=== PATIENT | male | born 1995 | race African-American/Black ===

== ENCOUNTER 2020-02-12 08:15 | Outpatient (RCR) | payer OTHER, SELFPAY ==
--- NOTE | 2020-01-09 17:30 | PT.OIE ---
Current Diagnoses Low back pain (01/09/20) Pain in leg, unspecified (01/09/20) Abnormal posture (01/09/20) Visit Care Team Role Provider Type Kadeemilynamrata Donovan Family Provider Non-Staff Specialty: Family Practice Address: [address] [place], [address] Fax: Email: Liliya Angel MD Attending Provider Non-Staff Referring Provider Specialty: Neurology Address: [address] [place] [address], [id number] Email: Physical Therapy Initial Evaluation PT-OP-A Visit Information Start: 01/09/20 12:45 Freq: Status: Active Protocol: Document 01/09/20 14:23 LRN (Rec: 01/09/20 15:13 LRN [id number]) Out-Patient Physical Therapy Visit Information Visit Information Visit Type Initial Evaluation Visit Start Time 14:24 Visit Stop Time 15:13 Total Visit Minutes 39 Visit Number 1 Evaluation Information Evaluation Date 01/09/20 Precautions Precautions Depression Prior Hx of Testicular torsion surgery in 2016. Bruises easily PT-OP-B Current Condition Start: 01/09/20 12:45 Freq: Status: Active Protocol: Document 01/09/20 14:23 LRN (Rec: 01/09/20 15:13 LRN [id number]) Current Condition History of Current Condition Onset Date 2015 Current Complaints LBP, intermittent LE pain and constant tingling/burning in entire foot. History of Current Condition LBP after surgery for testicular torsion in 2016. Pain started in both feet and radiates in spots up the legs (front of the knees) into the entire lower back. PT referral to see if the problem is in the lower back. Recently went to ER, last week , for back spasms. Was given medication (anti-inflammatory & Naproxin) that didn't help a lot. He reports sometimes burning pain along the medial inginual ligament bilaterally. Prior Treatments and Tests See above for medications taking. Future Testing and Treatments Planned None planned. Treatment Goals Patient/Caregiver Goals Pt goal is to relieve pain in low back and lower 1/2 of the body, 2) be able to lift weights 3) run for long distance (>1/4 mile), 4) tolerate standing still (>3') 5) Sit w/o having to shift around or lean, 6) Walk >30', 7) Bend with less pain. Prior Functional Status Baseline Function- ADL's Independent Baseline Function- Mobility Independent Current Functional Impairments (Reported) Functional Limitations- ADL's Limited in Lifting, bending, standing & sitting tolerance. Functional Limitations- Mobility/Gait Not able to walking > 30' or run > 1/4 mile Personal Factors Other Personal Factors That May Effect Depression that pt is seeking Therapy/Recovery medical help for. Pt demonstrates high sympathetic nervous system and protective posturing. 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 Patient Questionnaires Oswestry Low Back Index Oswestry Score 42 Oswestry Impairment 40 to 59% Impaired (Score 40- 59) OP-PT Pain Assessment Location Low back Pain Location Details Low back Intensity 8 Scale Used Numeric (0 - 10) Description Aching,Burning Comments Pain Comments Pt reported pain in the lower legs and burning/tingling in the feet bilaterally, but did not note these areas in the pain grid. PT-OP-H Neuro Start: 01/09/20 12:45 Freq: Status: Active Protocol: Document 01/09/20 14:23 LRN (Rec: 01/09/20 19:41 LRN [id number]) Sensation Evaluation Gross Sensation Sensation Description Hyperesthesia,Pins & [place] Dermatome Impairments L5,S1 Deep Tendon Reflex & Clonus Assessment Deep Tendon Reflex Bilateral Achilles Deep Tendon Reflex 3+ Normal But Brisk Left Patellar Deep Tendon Reflex 3+ Normal But Brisk PT-OP-J Posture/Palpation/Skin Start: 01/09/20 12:45 Freq: Status: Active Protocol: Document 01/09/20 14:23 LRN (Rec: 01/09/20 19:41 LRN [id number]) Posture Evaluation Position Standing Head/C-Spine Posture Neutral Position T-Spine Posture Neutral L-Spine Posture Rotation Right,Increased Lordosis Shoulder Posture Neutral Pelvis Posture Anteriorly Tilted Weight Distribution Balanced Comments Posture Comments Patient demonstrated protective posturing of the UE 's in standing, supine and prone with Palpation Assessment Location Lumbar region Palpation Location Posterior lumbar region Palpation Findings Soft Tissue Tightness,Muscle Guarding,Tenderness Palpation Details Spinous process of L1-L3, L5. Tranverse processes of L1 through L5 Lumbar paraspinals as indicated above PT-OP-K Range of Motion Start: 01/09/20 12:45 Freq: Status: Active Protocol: Document 01/09/20 14:23 LRN (Rec: 01/09/20 19:41 LRN [id number]) Lumbar Spine Range of Motion Lumbar Spine Active Degrees Testing Position Standing Flexion 65 Extension 12 Rotation Left 30 Rotation Right 25 Lateral Flexion Left 18 Lateral Flexion Right 13 ROM Limitations Pain Hip Goniometric Range of Motion Hip Right Active Hip ROM WFL No Testing Position Supine Flexion w/Knee Flexed 95 Straight Leg Raise 50 Left Active Hip ROM WFL No Testing Position Supine Flexion w/Knee Flexed 90 Straight Leg Raise 55 Hip ROM Limitations Hip ROM Limitations Pain Comments Pain is located in L low back bilaterally. Ankle and Foot Goniometric Range of Motion Ankle and Foot Right Active Ankle/Foot ROM WFL No Testing Position Supine Plantarflexion 37 Left Active Ankle/Foot ROM WFL No Testing Position Supine Plantarflexion 25 Ankle and Foot ROM Limitations ROM Limitations Soft Tissue Tightness Comments Active ankle DF is lacking 11 degs left, lacking 5 degs right (normal is 20 deg's). Active ankle PF normal is 45- 50 deg's PT-OP-L Special Tests Start: 01/09/20 12:45 Freq: Status: Active Protocol: Document 01/09/20 14:23 LRN (Rec: 01/09/20 19:41 LRN [id number]) Special Tests Lumbar Spine Special Tests Vertical Spine Loading Test Results + Comments Pain reproduced in L low back Manual Traction Test Results - Comments No change with pain Kenan Test Results + bilaterally Comments Indicates very tight hip flexors Straight Leg Raise Test Results + bilaterally Comments L LBP with testing bilaterally indicating possible large disc involvement Slump Test Results + Comments Increased back pain PT-OP-M Strength Start: 01/09/20 12:45 Freq: Status: Active Protocol: Document 01/09/20 14:23 LRN (Rec: 01/09/20 19:41 LRN [id number]) Hip Strength Hip Manual Muscle Testing Right Flexion (L2) 5 Normal Left Flexion (L2) 5 Normal Knee Strength Knee Manual Muscle Testing Right Flexion (S2) 5 Normal Extension (L3) 5 Normal Left Flexion (S2) 5 Normal Extension (L3) 5 Normal Ankle/Foot Strength Ankle and Foot Manual Muscle Testing Right Reason Not Measured WFL Left Reason Not Measured WFL PT-OP-Q Treatments Start: 01/09/20 12:45 Freq: Status: Active Protocol: Document 01/09/20 14:23 LRN (Rec: 01/09/20 19:41 LRN [id number]) Therapeutic Exercises Supine Exercises SKTC Supine Exercise Name SKTC painfree stretch Side bilateral Reps/Minutes Hold 10 secs x 2 Comments Pt trained in appropriate stretch to not exceed pain. Therapeutic Activity Therapeutic Activity Supine <-> Sit Name Log roll transfer Supine <-> Sit training Reps/Minutes 1x Comments Pt showed good understanding. Self-Care/Home Management Treatment Education Patient Education Home Exercise Program Other Education Discussed use of Ice or Heat for pain management, but pt noted when using Ice of Heat he feels an unwinding type of sensation that he does not tolerate well. Activities Self-Care/Home Management Activities I/S pt in transferring properly in/out of bed. I/S pt in HEP: SKTC stretch not into pain. Trained pt in max mobility for a stretch feeling . PT-OP-T Assessment and Plan Start: 01/09/20 12:45 Freq: Status: Active Protocol: Document 01/09/20 14:23 LRN (Rec: 01/09/20 19:41 LRN [id number]) Physical Therapy Assessment Rehab Potential Rehabilitation Potential Good Evaluation Complexity Number of Personal Factors/Comorbidities 1-2 Number of Body Systems Impaired 4 or More Clinical Presentation at Evaluation Evolving Impairments Impairments Activity Tolerance,Functional Mobility,Gait,Pain,Posture,ROM ,Sensation,Soft Tissue Mobility,Tone,Transfers Goals Five Impairment Pt limited in ability to bend over (pain 8/10) or lift weights. Environmental Planner Goal (LTG) Decrease pain in low back and lower 1/2 of the body, with pt will be able to bend over with less pain and lift light weights of 10#. LTG Duration 04/08/20 Four Impairment Extended posture of back and protective posturing. Short Term Goal (STG) Pt will be be able to correct for his excessive lumbar lordosis when cued. STG Duration 01/23/20 Environmental Planner Goal (LTG) Pt will demonstrate improved awareness of his protective posturing and excessive lumbar lordosis, and will be able to self correct when cued or will independently self correct. LTG Duration 04/08/20 Three Impairment Decreased activity tolerance and endurance. Short Term Goal (STG) Pt will be able to tolerate walking for >30' on level without limiting back/LE pain. STG Duration 02/27/20 Environmental Planner Goal (LTG) Pt intermediate goal is to be able to run at least a 1/4 mile distance, but appropriate goal would be for pt to be able to demonstrate ability to run for no greater than 10' prior to onset of limiting LBP . LTG Duration 04/08/20 Two Impairment Pain limiting funct'l static sitting (constant shifting) and standing (<3') Short Term Goal (STG) Improve posture & decrease LBP in standing with pt able to stand > 3'. STG Duration 02/27/20 Residential Goal (LTG) Educate pt in proper sitting posture to minimize LBP, with pt able to sit for 25-30' prior to pt needing to shift to reduce back pain. LTG Duration 04/08/20 One Impairment Pt lacks appropriate self care HEP Environmental Planner Goal (LTG) Pt will be independent with a self care HEP to manage his pain and mobility restrictions . LTG Duration 04/08/20 Assessment Summary Assessment Pt presents with possible disc involvement, L side, at primarily the L5, S1 level with + special test findings and sensation changes in the lower legs and feet. The pt has unusual subjective reports of an unwinding sensation with use of ice or heat; therefore he probably has fascial dysfunctions resulting from the testicular torsion surgery he reports was the event just prior to his onset of symptoms. The pt did mention that the MRI report of his back showed no findings of disc involvement, therefore conflicting with pt's signs and symptoms of today. MRI report was unavailable for viewing. The pt also shows rigid UE protective posturing in all positions assessed. He was very guarded throughout therapy which may be a contributing factor in his decreased general mobility ( back, hips, ankles). The pt will benefit from skilled physical therapy for manual therapy to reduce soft tissue restrictions and for exer and self care instructions/ education to promote self care through exercise and a HEP, and to progress the pt in reducing soft tissue tightness and decreasing his sympathetic tone. Due to the pt's guarded nature and his changing deployment status, it is expected that the pt's rehab program will take longer than usual. Physical Therapy Plan Frequency and Duration Frequency of Treatment 2x/Week Plan of Care Start Date 01/09/20 Plan of Care End Date 04/08/20 Therapeutic Interventions Therapeutic Interventions Home Exercise Program,Manual Therapy,Neuromuscular Re- education,Patient/Caregiver Education,Self-Care/Home Management,Soft Tissue Mobilization,Taping, Therapeutic Exercises Modalities Biofeedback Other Referrals/Consults Referrals/Consults Recommended Recommend massage therapy of low back and LE's. Recommend referral for men's health assessment and treatment for soft tissue dysfunction related to his testicular torsion. Next Visit Focus/Plan Next Note Type Treatment Note Next Visit Plan Complete scheduling once pt's deployment schedule is known. Complete hip strength and mobility assessment with HEP issued for areas of deficit. Manual therapy/MFR/Strain- Counterstrain to decrease ms guarding, if not tolerated start with exercise to improve mobility. Manual lumbar traction. Educate in lumbar protective posture for functional and transfer activities.
--- NOTE | 2020-01-16 17:39 | PT.OTN ---
Current Diagnoses Low back pain (01/16/20) Pain in leg, unspecified (01/16/20) Abnormal posture (01/16/20) Physical Therapy Treatment Note PT-OP-A Visit Information Start: 01/09/20 12:45 Freq: Status: Active Protocol: Document 01/16/20 10:35 LRN (Rec: 01/16/20 11:23 LRN [id number]) Out-Patient Physical Therapy Visit Information Visit Information Visit Type Treatment Note Visit Start Time 10:35 Visit Stop Time 11:21 Total Visit Minutes 46 Visit Number 2 Evaluation Information Evaluation Date 01/09/20 Precautions Precautions Depression Prior Hx of Testicular torsion surgery in 2016. Bruises easily PT-OP-B Current Condition Start: 01/09/20 12:45 Freq: Status: Active Protocol: Document 01/09/20 14:23 LRN (Rec: 01/09/20 15:13 LRN [id number]) Current Condition History of Current Condition Onset Date 2016 Current Complaints LBP, intermittent LE pain and constant tingling/burning in entire foot. History of Current Condition LBP after surgery for testicular torsion in 2016. Pain started in both feet and radiates in spots up the legs (front of the knees) into the entire lower back. PT referral to see if the problem is in the lower back. Recently went to ER, last week , for back spasms. Was given medication (anti-inflammatory & Naproxin) that didn't help a lot. He reports sometimes burning pain along the medial inginual ligament bilaterally. Prior Treatments and Tests See above for medications taking. Future Testing and Treatments Planned None planned. Treatment Goals Patient/Caregiver Goals Pt goal is to relieve pain in low back and lower 1/2 of the body, 2) be able to lift weights 3) run for long distance (>1/4 mile), 4) tolerate standing still (>3') 5) Sit w/o having to shift around or lean, 6) Walk >30', 7) Bend with less pain. Prior Functional Status Baseline Function- ADL's Independent Baseline Function- Mobility Independent Current Functional Impairments (Reported) Functional Limitations- ADL's Limited in Lifting, bending, standing & sitting tolerance. Functional Limitations- Mobility/Gait Not able to walking > 30' or run > 1/4 mile Personal Factors Other Personal Factors That May Effect Depression that pt is seeking Therapy/Recovery medical help for. Pt demonstrates high sympathetic nervous system and protective posturing. PT-OP-C Subjective Start: 01/09/20 12:45 Freq: Status: Active Protocol: Document 01/16/20 10:35 LRN (Rec: 01/16/20 11:23 LRN [id number]) OP-PT Subjective Patient Comments Patient Comments No change. Pain prior to leaving [place] was 8/10, currently is 6/10. Driving helps to relieve the pain because reclined. Also changed clothes because the belt line increases back pain. Belt pressure causes L low back ( SIJ) pain. L side has been hurting more than R side. PT-OP-H Neuro Start: 01/09/20 12:45 Freq: Status: Active Protocol: Document 01/09/20 14:23 LRN (Rec: 01/09/20 19:41 LRN [id number]) Sensation Evaluation Gross Sensation Sensation Description Hyperesthesia,Pins & [place] Dermatome Impairments L5,S1 Deep Tendon Reflex & Clonus Assessment Deep Tendon Reflex Bilateral Achilles Deep Tendon Reflex 3+ Normal But Brisk Left Patellar Deep Tendon Reflex 3+ Normal But Brisk PT-OP-J Posture/Palpation/Skin Start: 01/09/20 12:45 Freq: Status: Active Protocol: Document 01/09/20 14:23 LRN (Rec: 01/09/20 19:41 LRN [id number]) Posture Evaluation Position Standing Head/C-Spine Posture Neutral Position T-Spine Posture Neutral L-Spine Posture Rotation Right,Increased Lordosis Shoulder Posture Neutral Pelvis Posture Anteriorly Tilted Weight Distribution Balanced Comments Posture Comments Patient demonstrated protective posturing of the UE 's in standing, supine and prone with Palpation Assessment Location Lumbar region Palpation Location Posterior lumbar region Palpation Findings Soft Tissue Tightness,Muscle Guarding,Tenderness Palpation Details Spinous process of L1-L3, L5. Tranverse processes of L1 through L5 Lumbar paraspinals as indicated above PT-OP-K Range of Motion Start: 01/09/20 12:45 Freq: Status: Active Protocol: Document 01/09/20 14:23 LRN (Rec: 01/09/20 19:41 LRN [id number]) Lumbar Spine Range of Motion Lumbar Spine Active Degrees Testing Position Standing Flexion 65 Extension 12 Rotation Left 30 Rotation Right 25 Lateral Flexion Left 18 Lateral Flexion Right 13 ROM Limitations Pain Hip Goniometric Range of Motion Hip Right Active Hip ROM WFL No Testing Position Supine Flexion w/Knee Flexed 95 Straight Leg Raise 50 Left Active Hip ROM WFL No Testing Position Supine Flexion w/Knee Flexed 90 Straight Leg Raise 55 Hip ROM Limitations Hip ROM Limitations Pain Comments Pain is located in L low back bilaterally. Ankle and Foot Goniometric Range of Motion Ankle and Foot Right Active Ankle/Foot ROM WFL No Testing Position Supine Plantarflexion 37 Left Active Ankle/Foot ROM WFL No Testing Position Supine Plantarflexion 25 Ankle and Foot ROM Limitations ROM Limitations Soft Tissue Tightness Comments Active ankle DF is lacking 11 degs left, lacking 5 degs right (normal is 20 deg's). Active ankle PF normal is 45- 50 deg's PT-OP-L Special Tests Start: 01/09/20 12:45 Freq: Status: Active Protocol: Document 01/09/20 14:23 LRN (Rec: 01/09/20 19:41 LRN [id number]) Special Tests Lumbar Spine Special Tests Vertical Spine Loading Test Results + Comments Pain reproduced in L low back Manual Traction Test Results - Comments No change with pain Kenan Test Results + bilaterally Comments Indicates very tight hip flexors Straight Leg Raise Test Results + bilaterally Comments L LBP with testing bilaterally indicating possible large disc involvement Slump Test Results + Comments Increased back pain PT-OP-M Strength Start: 01/09/20 12:45 Freq: Status: Active Protocol: Document 01/09/20 14:23 LRN (Rec: 01/09/20 19:41 LRN [id number]) Hip Strength Hip Manual Muscle Testing Right Flexion (L2) 5 Normal Left Flexion (L2) 5 Normal Knee Strength Knee Manual Muscle Testing Right Flexion (S2) 5 Normal Extension (L3) 5 Normal Left Flexion (S2) 5 Normal Extension (L3) 5 Normal Ankle/Foot Strength Ankle and Foot Manual Muscle Testing Right Reason Not Measured WFL Left Reason Not Measured WFL PT-OP-Q Treatments Start: 01/09/20 12:45 Freq: Status: Active Protocol: Document 01/16/20 10:35 LRN (Rec: 01/16/20 11:23 LRN [id number]) Therapeutic Exercises Supine Exercises Prone press ups Supine Exercise Name Starting with relaxed position : pillows under chest, f/b Isometric hold Equipment Used Pillow under chest Reps/Minutes 10x 5 hold Comments Had to determine best position for pt to get relaxation phase w/trunk ext Bridging Supine Exercise Name Bridging Reps/Minutes 10x Comments Pain moved from L SIJ to center of back. Chest Breathing Supine Exercise Name Chest breathing bilt and R>L Reps/Minutes 15' Comments Phys cuing by PT and pt needed to improve awareness TA Supine Exercise Name TA training and awareness Reps/Minutes 8' SKTC Supine Exercise Name SKTC painfree stretch Side bilateral Reps/Minutes Hold 10 secs x 2 Comments Pt trained in appropriate stretch to not exceed pain. Self-Care/Home Management Treatment Education Patient Education Home Exercise Program Activities Self-Care/Home Management Activities Issued & reviewed HEP: TA tightening, bridging, minimal prone press ups, Verbal review of Quad stretch in prone. PT-OP-R Modalities Start: 01/09/20 12:45 Freq: Status: Active Protocol: Document 01/16/20 10:35 LRN (Rec: 01/16/20 11:23 LRN [id number]) Electric Stimulation Electric Stimulation LOW Back Body Location Low back , cross at sacrum Duration (Minutes) 13 Intensity 10 Patient Position Hooklying Combined With Heat/Cold Hot Pack Comments Pt reported throbbing pain at R knee at location of well healed scar (of childhood), that dissapated after EStim removed. Hot Pack/Cold Pack Treatment Hot Pack Location Low back w/EStim Patient Position Hooklying Treatment Duration (minutes) 15 Comments Pt taken off E-Stim but left on MH for a couple extra minutes. PT-OP-T Assessment and Plan Start: 01/09/20 12:45 Freq: Status: Active Protocol: Document 01/16/20 10:35 LRN (Rec: 01/16/20 11:23 LRN [id number]) Physical Therapy Assessment Goals Five Impairment Pt limited in ability to bend over (pain 8/10) or lift weights. Plate Roller Goal (LTG) Decrease pain in low back and lower 1/2 of the body, with pt will be able to bend over with less pain and lift light weights of 10#. LTG Duration 04/08/20 Four Impairment Extended posture of back and protective posturing. Short Term Goal (STG) Pt will be be able to correct for his excessive lumbar lordosis when cued. STG Duration 01/23/20 Penitentiary Goal (LTG) Pt will demonstrate improved awareness of his protective posturing and excessive lumbar lordosis, and will be able to self correct when cued or will independently self correct. LTG Duration 04/08/20 Three Impairment Decreased activity tolerance and endurance. Short Term Goal (STG) Pt will be able to tolerate walking for >30' on level without limiting back/LE pain. STG Duration 02/27/20 Plate Roller Goal (LTG) Pt intermediate project manager goal is to be able to run at least a 1/4 mile distance, but appropriate goal would be for pt to be able to demonstrate ability to run for no greater than 10' prior to onset of limiting LBP . LTG Duration 04/08/20 Two Impairment Pain limiting funct'l static sitting (constant shifting) and standing (<3') Short Term Goal (STG) Improve posture & decrease LBP in standing with pt able to stand > 3'. STG Duration 02/27/20 Plate Roller Goal (LTG) Educate pt in proper sitting posture to minimize LBP, with pt able to sit for 25-30' prior to pt needing to shift to reduce back pain. LTG Duration 04/08/20 One Impairment Pt lacks appropriate self care HEP Plate Roller Goal (LTG) Pt will be independent with a self care HEP to manage his pain and mobility restrictions . LTG Duration 04/08/20 Assessment Summary Assessment Pt had fair tolerance to EStim with onset of complaints of R knee throbbing, but dissapated after EStim ended. Pt pain decreased on his 30' drive to clinic from 8/10 to 6 /10. No worsening of pain post treatment but no lessening of pain immediately post therapy. Good tolerance to exercises. Physical Therapy Plan Frequency and Duration Frequency of Treatment 2x/Week Plan of Care Start Date 01/09/20 Plan of Care End Date 04/08/20 Next Visit Focus/Plan Next Note Type Treatment Note Next Visit Plan Complete scheduling once pt's deployment schedule is known. Complete hip strength and mobility assessment with HEP issued for areas of deficit. Try Manual lumbar traction. Manual therapy/MFR/Strain- Counterstrain to decrease ms guarding, if not tolerated start with exercise to improve mobility. Educate in lumbar protective posture for functional and transfer activities.
--- NOTE | 2020-01-18 17:47 | PT.OTN ---
Current Diagnoses Low back pain (01/18/20) Pain in leg, unspecified (01/18/20) Abnormal posture (01/18/20) Physical Therapy Treatment Note PT-OP-A Visit Information Start: 01/09/20 12:45 Freq: Status: Active Protocol: Document 01/18/20 11:21 LRN (Rec: 01/18/20 12:21 LRN [id number]) Out-Patient Physical Therapy Visit Information Visit Information Visit Type Treatment Note Visit Start Time 11:21 Visit Stop Time 12:15 Total Visit Minutes 54 Visit Number 3 Evaluation Information Evaluation Date 01/09/20 Precautions Precautions Depression Prior Hx of Testicular torsion surgery in 2016. Bruises easily PT-OP-B Current Condition Start: 01/09/20 12:45 Freq: Status: Active Protocol: Document 01/09/20 14:23 LRN (Rec: 01/09/20 15:13 LRN [id number]) Current Condition History of Current Condition Onset Date 2016 Current Complaints LBP, intermittent LE pain and constant tingling/burning in entire foot. History of Current Condition LBP after surgery for testicular torsion in 2016. Pain started in both feet and radiates in spots up the legs (front of the knees) into the entire lower back. PT referral to see if the problem is in the lower back. Recently went to ER, last week , for back spasms. Was given medication (anti-inflammatory & Naproxin) that didn't help a lot. He reports sometimes burning pain along the medial inginual ligament bilaterally. Prior Treatments and Tests See above for medications taking. Future Testing and Treatments Planned None planned. Treatment Goals Patient/Caregiver Goals Pt goal is to relieve pain in low back and lower 1/2 of the body, 2) be able to lift weights 3) run for long distance (>1/4 mile), 4) tolerate standing still (>3') 5) Sit w/o having to shift around or lean, 6) Walk >30', 7) Bend with less pain. Prior Functional Status Baseline Function- ADL's Independent Baseline Function- Mobility Independent Current Functional Impairments (Reported) Functional Limitations- ADL's Limited in Lifting, bending, standing & sitting tolerance. Functional Limitations- Mobility/Gait Not able to walking > 30' or run > 1/4 mile Personal Factors Other Personal Factors That May Effect Depression that pt is seeking Therapy/Recovery medical help for. Pt demonstrates high sympathetic nervous system and protective posturing. PT-OP-C Subjective Start: 01/09/20 12:45 Freq: Status: Active Protocol: Document 01/18/20 11:21 LRN (Rec: 01/18/20 12:21 LRN [id number]) OP-PT Subjective Patient Comments Patient Comments States after the last session his R knee pain went away after awhile, but when layed down the pain returned, it happens randomly like that. PT-OP-H Neuro Start: 01/09/20 12:45 Freq: Status: Active Protocol: Document 01/09/20 14:23 LRN (Rec: 01/09/20 19:41 LRN [id number]) Sensation Evaluation Gross Sensation Sensation Description Hyperesthesia,Pins & [place] Dermatome Impairments L5,S1 Deep Tendon Reflex & Clonus Assessment Deep Tendon Reflex Bilateral Achilles Deep Tendon Reflex 3+ Normal But Brisk Left Patellar Deep Tendon Reflex 3+ Normal But Brisk PT-OP-J Posture/Palpation/Skin Start: 01/09/20 12:45 Freq: Status: Active Protocol: Document 01/09/20 14:23 LRN (Rec: 01/09/20 19:41 LRN [id number]) Posture Evaluation Position Standing Head/C-Spine Posture Neutral Position T-Spine Posture Neutral L-Spine Posture Rotation Right,Increased Lordosis Shoulder Posture Neutral Pelvis Posture Anteriorly Tilted Weight Distribution Balanced Comments Posture Comments Patient demonstrated protective posturing of the UE 's in standing, supine and prone with Palpation Assessment Location Lumbar region Palpation Location Posterior lumbar region Palpation Findings Soft Tissue Tightness,Muscle Guarding,Tenderness Palpation Details Spinous process of L1-L3, L5. Tranverse processes of L1 through L5 Lumbar paraspinals as indicated above PT-OP-K Range of Motion Start: 01/09/20 12:45 Freq: Status: Active Protocol: Document 01/18/20 11:21 LRN (Rec: 01/18/20 12:21 LRN [id number]) Hip Goniometric Range of Motion Hip Right Active Internal Rotation 25 External Rotation 30 Left Active Internal Rotation 20 External Rotation 30 PT-OP-L Special Tests Start: 01/09/20 12:45 Freq: Status: Active Protocol: Document 01/09/20 14:23 LRN (Rec: 01/09/20 19:41 LRN [id number]) Special Tests Lumbar Spine Special Tests Vertical Spine Loading Test Results + Comments Pain reproduced in L low back Manual Traction Test Results - Comments No change with pain Kenan Test Results + bilaterally Comments Indicates very tight hip flexors Straight Leg Raise Test Results + bilaterally Comments L LBP with testing bilaterally indicating possible large disc involvement Slump Test Results + Comments Increased back pain PT-OP-M Strength Start: 01/09/20 12:45 Freq: Status: Active Protocol: Document 01/18/20 11:21 LRN (Rec: 01/18/20 12:21 LRN [id number]) Hip Strength Hip Manual Muscle Testing Right Flexion (L2) 4+ Good+ Extension (S1) 4 Good Abduction 4+ Good+ Adduction 4 Good External Rotation 5 Normal Internal Rotation 5 Normal Comments R hip ext: lacks ROM R hip AD: Causes L lateral trunk pain. Left Flexion (L2) 5 Normal Extension (S1) 5 Normal Abduction 5 Normal Adduction 5 Normal External Rotation 5 Normal Internal Rotation 5 Normal PT-OP-Q Treatments Start: 01/09/20 12:45 Freq: Status: Active Protocol: Document 01/18/20 11:21 LRN (Rec: 01/18/20 12:21 LRN [id number]) Therapeutic Exercises Supine Exercises Hip ER Supine Exercise Name Fig 4 stretch f/b active ER x 10 Side bilateral Reps/Minutes 6' Comments ROM measurements taken Hip AD Supine Exercise Name Active hip AD with TA/neck relaxed Reps/Minutes 10x Comments Pt had RLB pn that shifted to middle with TA >< Bridging Supine Exercise Name Bridging Reps/Minutes 10x Comments Pain moved from L SIJ to center of back. Chest Breathing Supine Exercise Name Chest breathing bren and R>L Reps/Minutes 6' Comments Phys cuing by PT and pt needed to improve awareness TA Supine Exercise Name TA tightening and awareness Reps/Minutes 3' Prone Exercises Press ups Prone Exercise Name Press ups Reps/Minutes 10x Comments Training needed for proper positioning Sidelying Exercises Hip AB/AD Sidelying Exercise Name Active resisted ROM (manual) Comments MMT taken (x 2 on R hip) Self-Care/Home Management Treatment Education Patient Education Posture Other Education Educated and discussed proper posturing, with greatest time spent sitting for driving. Discussed the effects of hip/ trunk posture on back pain, and effects of protective/ rigid posturing on back pain. Educated at length, pt in self MFR for self MFR of scrotum and areas effected by testicular surgery. Pt to apply to scrotum, groin and hip AD region bilaterally. Discussed self care vs therapist care. Activities Self-Care/Home Management Activities Issued and reviewed HEP for anterior hip stretch. PT-OP-R Modalities Start: 01/09/20 12:45 Freq: Status: Active Protocol: Document 01/16/20 10:35 LRN (Rec: 01/16/20 11:23 LRN [id number]) Electric Stimulation Electric Stimulation LOW Back Body Location Low back , cross at sacrum Duration (Minutes) 13 Intensity 10 Patient Position Hooklying Combined With Heat/Cold Hot Pack Comments Pt reported throbbing pain at R knee at location of well healed scar (of childhood), that dissapated after EStim removed. Hot Pack/Cold Pack Treatment Hot Pack Location Low back w/EStim Patient Position Hooklying Treatment Duration (minutes) 15 Comments Pt taken off E-Stim but left on MH for a couple extra minutes. PT-OP-T Assessment and Plan Start: 01/09/20 12:45 Freq: Status: Active Protocol: Document 01/18/20 11:21 LRN (Rec: 01/18/20 12:21 LRN [id number]) Physical Therapy Assessment Goals Five Impairment Pt limited in ability to bend over (pain 8/10) or lift weights. Load Out Worker Goal (LTG) Decrease pain in low back and lower 1/2 of the body, with pt will be able to bend over with less pain and lift light weights of 10#. LTG Duration 04/08/20 Four Impairment Extended posture of back and protective posturing. Short Term Goal (STG) Pt will be be able to correct for his excessive lumbar lordosis when cued. STG Duration 01/23/20 Load Out Worker Goal (LTG) Pt will demonstrate improved awareness of his protective posturing and excessive lumbar lordosis, and will be able to self correct when cued or will independently self correct. LTG Duration 04/08/20 (01/18/20: Less protective posturing noted) Three Impairment Decreased activity tolerance and endurance. Short Term Goal (STG) Pt will be able to tolerate walking for >30' on level without limiting back/LE pain. 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 LTG Duration 04/08/20 Two Impairment Pain limiting funct'l static sitting (constant shifting) and standing (<3') Short Term Goal (STG) Improve posture & decrease LBP in standing with pt able to stand > 3'. STG Duration 02/27/20 Load Out Worker Goal (LTG) Educate pt in proper sitting posture to minimize LBP, with pt able to sit for 25-30' prior to pt needing to shift to reduce back pain. LTG Duration 04/08/20 (01/18/20: Goal partially met, educated pt in proper sit posture) One Impairment Pt lacks appropriate self care HEP Load Out Worker Goal (LTG) Pt will be independent with a self care HEP to manage his pain and mobility restrictions . LTG Duration 04/08/20 (01/18/20: Progressing) Progress Towards Goals Progress Comments Pt improved with hip L ER 10 deg's (20 to 30 deg's) after positional passive stretch f/b active stretch. Assessment Summary Assessment Centralized LBP with repetitive SURAJ x 10; therefore reduction in previously assessed possible large L disc involvement. Pt postures in a very tense and rigid posture with excessive anterior pelvic tilt, probably due to tight anterior and medial hip soft tissues (also related to his L testicular surgery). Pt is not sure which side his testicular surgery was on; therefore he will check and report back at the next session. His hip strength is good, except he has pain in the L lateral trunk with active hip AD against gravity. He is very restricted in hip mobility especially with (ER> IR) and hip flexors. Will need to check hip AD's. Physical Therapy Plan Frequency and Duration Frequency of Treatment 2x/Week Plan of Care Start Date 01/09/20 Plan of Care End Date 04/08/20 Next Visit Focus/Plan Next Note Type Treatment Note Next Visit Plan Check hip AD mobility. Issue HEP for fig4, IR's stretch & TA control w/hip AD strengthening. Complete scheduling once pt's deployment schedule is known. Try Manual lumbar traction. Manual therapy/MFR/Strain- Counterstrain/CR stretching, to decrease ms guarding, if not tolerated start with exercise to improve mobility. Educate in lumbar protective posture (TA tightening) for functional and transfer activities.
--- NOTE | 2020-01-22 18:39 | PT.OTN ---
Current Diagnoses Low back pain (01/22/20) Pain in leg, unspecified (01/22/20) Abnormal posture (01/22/20) Physical Therapy Treatment Note PT-OP-A Visit Information Start: 01/09/20 12:45 Freq: Status: Active Protocol: Document 01/22/20 09:07 LRN (Rec: 01/22/20 09:49 LRN [id number]) Out-Patient Physical Therapy Visit Information Visit Information Visit Type Treatment Note Visit Start Time 09:07 Visit Stop Time 09:49 Total Visit Minutes 42 Visit Number 4 Evaluation Information Evaluation Date 01/09/20 Precautions Precautions Depression Prior Hx of Testicular torsion surgery in 2016. Bruises easily PT-OP-B Current Condition Start: 01/09/20 12:45 Freq: Status: Active Protocol: Document 01/09/20 14:23 LRN (Rec: 01/09/20 15:13 LRN [id number]) Current Condition History of Current Condition Onset Date 2016 Current Complaints LBP, intermittent LE pain and constant tingling/burning in entire foot. History of Current Condition LBP after surgery for testicular torsion in 2016. Pain started in both feet and radiates in spots up the legs (front of the knees) into the entire lower back. PT referral to see if the problem is in the lower back. Recently went to ER, last week , for back spasms. Was given medication (anti-inflammatory & Naproxin) that didn't help a lot. He reports sometimes burning pain along the medial inginual ligament bilaterally. Prior Treatments and Tests See above for medications taking. Future Testing and Treatments Planned None planned. Treatment Goals Patient/Caregiver Goals Pt goal is to relieve pain in low back and lower 1/2 of the body, 2) be able to lift weights 3) run for long distance (>1/4 mile), 4) tolerate standing still (>3') 5) Sit w/o having to shift around or lean, 6) Walk >30', 7) Bend with less pain. Prior Functional Status Baseline Function- ADL's Independent Baseline Function- Mobility Independent Current Functional Impairments (Reported) Functional Limitations- ADL's Limited in Lifting, bending, standing & sitting tolerance. Functional Limitations- Mobility/Gait Not able to walking > 30' or run > 1/4 mile Personal Factors Other Personal Factors That May Effect Depression that pt is seeking Therapy/Recovery medical help for. Pt demonstrates high sympathetic nervous system and protective posturing. PT-OP-C Subjective Start: 01/09/20 12:45 Freq: Status: Active Protocol: Document 01/22/20 09:07 LRN (Rec: 01/22/20 09:49 LRN [id number]) OP-PT Subjective Patient Comments Patient Comments States his surgery was on the Right side. States it is extremely tender to touch. PT-OP-H Neuro Start: 01/09/20 12:45 Freq: Status: Active Protocol: Document 01/09/20 14:23 LRN (Rec: 01/09/20 19:41 LRN [id number]) Sensation Evaluation Gross Sensation Sensation Description Hyperesthesia,Pins & [place] Dermatome Impairments L5,S1 Deep Tendon Reflex & Clonus Assessment Deep Tendon Reflex Bilateral Achilles Deep Tendon Reflex 3+ Normal But Brisk Left Patellar Deep Tendon Reflex 3+ Normal But Brisk PT-OP-J Posture/Palpation/Skin Start: 01/09/20 12:45 Freq: Status: Active Protocol: Document 01/09/20 14:23 LRN (Rec: 01/09/20 19:41 LRN [id number]) Posture Evaluation Position Standing Head/C-Spine Posture Neutral Position T-Spine Posture Neutral L-Spine Posture Rotation Right,Increased Lordosis Shoulder Posture Neutral Pelvis Posture Anteriorly Tilted Weight Distribution Balanced Comments Posture Comments Patient demonstrated protective posturing of the UE 's in standing, supine and prone with Palpation Assessment Location Lumbar region Palpation Location Posterior lumbar region Palpation Findings Soft Tissue Tightness,Muscle Guarding,Tenderness Palpation Details Spinous process of L1-L3, L5. Tranverse processes of L1 through L5 Lumbar paraspinals as indicated above PT-OP-K Range of Motion Start: 01/09/20 12:45 Freq: Status: Active Protocol: Document 01/22/20 09:07 LRN (Rec: 01/22/20 09:49 LRN [id number]) Hip Goniometric Range of Motion Hip Right Active Flexion w/Knee Flexed 70 Straight Leg Raise 30 Abduction 22 Left Active Flexion w/Knee Flexed 80 Straight Leg Raise 75 Abduction 27 Hip ROM Limitations Comments L add 27 DEG'S R add 32 DEG'S PT-OP-L Special Tests Start: 01/09/20 12:45 Freq: Status: Active Protocol: Document 01/09/20 14:23 LRN (Rec: 01/09/20 19:41 LRN [id number]) Special Tests Lumbar Spine Special Tests Vertical Spine Loading Test Results + Comments Pain reproduced in L low back Manual Traction Test Results - Comments No change with pain Kenan Test Results + bilaterally Comments Indicates very tight hip flexors Straight Leg Raise Test Results + bilaterally Comments L LBP with testing bilaterally indicating possible large disc involvement Slump Test Results + Comments Increased back pain PT-OP-M Strength Start: 01/09/20 12:45 Freq: Status: Active Protocol: Document 01/18/20 11:21 LRN (Rec: 01/18/20 12:21 LRN [id number]) Hip Strength Hip Manual Muscle Testing Right Flexion (L2) 4+ Good+ Extension (S1) 4 Good Abduction 4+ Good+ Adduction 4 Good External Rotation 5 Normal Internal Rotation 5 Normal Comments R hip ext: lacks ROM R hip AD: Causes L lateral trunk pain. Left Flexion (L2) 5 Normal Extension (S1) 5 Normal Abduction 5 Normal Adduction 5 Normal External Rotation 5 Normal Internal Rotation 5 Normal PT-OP-Q Treatments Start: 01/09/20 12:45 Freq: Status: Active Protocol: Document 01/22/20 09:07 LRN (Rec: 01/22/20 09:49 LRN [id number]) Therapeutic Exercises Supine Exercises Hip ER Supine Exercise Name Fig 4 stretch f/b active ER x 10 Side bilateral Reps/Minutes 6' Hip AD Supine Exercise Name Active hip AD with TA/neck relaxed Reps/Minutes 10x Bridging Supine Exercise Name Bridging w/hip AB Resistance L2 T-Band Reps/Minutes 10x 2 Comments Pain in lower legs medial knees Chest Breathing Supine Exercise Name Chest breathing bren and R>L Reps/Minutes 6' Comments Pt able to move chest, still releasing TA. TA Supine Exercise Name TA tightening and awareness Reps/Minutes 1' Comments Good awareness Prone Exercises Press ups Prone Exercise Name Press ups Reps/Minutes 15x Comments Pt's hips are in flexed position and not able to stretch Iliopsoas Sitting Exercises Quad stretch Sitting Exercise Name Quad stretch Side right Reps/Minutes 2' Standing Exercises Quad stretch Standing Exercise Name Quad stretch Side bilateral Equipment Used Chair Reps/Minutes 3' Comments Held, not able to eliminate R medial knee pain bren with stretch Manual Therapy Treatment Soft Tissue Mobilization Myokinesthetic stretch Body Location Bilateral hip AD's Intensity/Depth Moderate Body Position Supine C/R Body Location Bilateral hip AD's Mobilization Type Other Intensity/Depth Moderate Body Position Supine Self-Care/Home Management Treatment Education Patient Education Home Exercise Program Other Education Educated pt in self MFR of the surgical scar on the R testicle and to the R side of the penis. Activities Self-Care/Home Management Activities I/S pt in self quad stretching in sitting after finding standing to be too painful at the knee. Pt to try at work. Issued Lev 2 TBand. PT-OP-R Modalities Start: 01/09/20 12:45 Freq: Status: Active Protocol: Document 01/16/20 10:35 LRN (Rec: 01/16/20 11:23 LRN [id number]) Electric Stimulation Electric Stimulation LOW Back Body Location Low back , cross at sacrum Duration (Minutes) 13 Intensity 10 Patient Position Hooklying Combined With Heat/Cold Hot Pack Comments Pt reported throbbing pain at R knee at location of well healed scar (of childhood), that dissapated after EStim removed. Hot Pack/Cold Pack Treatment Hot Pack Location Low back w/EStim Patient Position Hooklying Treatment Duration (minutes) 15 Comments Pt taken off E-Stim but left on MH for a couple extra minutes. PT-OP-T Assessment and Plan Start: 01/09/20 12:45 Freq: Status: Active Protocol: Document 01/22/20 09:07 LRN (Rec: 01/22/20 09:49 LRN [id number]) Physical Therapy Assessment Goals Five Impairment Pt limited in ability to bend over (pain 8/10) or lift weights. Spring Coverer Goal (LTG) Decrease pain in low back and lower 1/2 of the body, with pt will be able to bend over with less pain and lift light weights of 10#. LTG Duration 04/08/20 Four Impairment Extended posture of back and protective posturing. Short Term Goal (STG) Pt will be be able to correct for his excessive lumbar lordosis when cued. STG Duration 01/23/20 Spring Coverer Goal (LTG) Pt will demonstrate improved awareness of his protective posturing and excessive lumbar lordosis, and will be able to self correct when cued or will independently self correct. LTG Duration 04/08/20 (01/18/20: Less protective posturing noted) Three Impairment Decreased activity tolerance and endurance. Short Term Goal (STG) Pt will be able to tolerate walking for >30' on level without limiting back/LE pain. 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 LTG Duration 04/08/20 Two Impairment Pain limiting funct'l static sitting (constant shifting) and standing (<3') Short Term Goal (STG) Improve posture & decrease LBP in standing with pt able to stand > 3'. STG Duration 02/27/20 Spring Coverer Goal (LTG) Educate pt in proper sitting posture to minimize LBP, with pt able to sit for 25-30' prior to pt needing to shift to reduce back pain. LTG Duration 04/08/20 (01/18/20: Goal partially met, educated pt in proper sit posture) One Impairment Pt lacks appropriate self care HEP Spring Coverer Goal (LTG) Pt will be independent with a self care HEP to manage his pain and mobility restrictions . LTG Duration 04/08/20 (01/18/20: Progressing) Progress Towards Goals Progress Comments Active hip AD s/p stretchin degs right; 27 degs left. Assessment Summary Assessment Hip AB AROM in supine increased bilaterally by 5 deg 's after STM and stretching to hip AD's. Pain worse in low back after SURAJ ex he rated as 8/10. He reported sensation of gripping in his LE's after manual stretching as pain rated 7/10. Pt facial expressions somewhat flaccid. Pt tolerance to manual stretching appeared good, with minimal changes in facial expressions, but reports of pain. Physical Therapy Plan Frequency and Duration Frequency of Treatment 2x/Week Plan of Care Start Date 01/09/20 Plan of Care End Date 04/08/20 Next Visit Focus/Plan Next Note Type Treatment Note Next Visit Plan Issue HEP & review for fig4, IR's, & hip flexor (sup/ standing) stretch & TA control w/hip AD strengthening. Next visit: Complete scheduling if deployment schedule is known. Try Manual lumbar traction with increased lumbar pain. Assess response to Manual therapy/MFR/Strain- Counterstrain/CR stretching. If not tolerated well, try starting with exercise prior to stretching to improve mobility and decrease ms guarding. Body mechanics training for lifting. Educate lumbar protective posture (TA tightening) for functional and transfer activities.
--- NOTE | 2020-01-25 16:26 | PT.OTN ---
Current Diagnoses Low back pain (01/25/20) Pain in leg, unspecified (01/25/20) Abnormal posture (01/25/20) Physical Therapy Treatment Note PT-OP-A Visit Information Start: 01/09/20 12:45 Freq: Status: Active Protocol: Document 01/25/20 15:08 LRN (Rec: 01/25/20 16:24 LRN [id number]) Out-Patient Physical Therapy Visit Information Visit Information Visit Type Treatment Note Visit Start Time 15:08 Visit Stop Time 15:48 Total Visit Minutes 40 Visit Number 5 Evaluation Information Evaluation Date 01/09/20 Precautions Precautions Depression Prior Hx of Testicular torsion surgery in 2016. Bruises easily PT-OP-B Current Condition Start: 01/09/20 12:45 Freq: Status: Active Protocol: Document 01/09/20 14:23 LRN (Rec: 01/09/20 15:13 LRN [id number]) Current Condition History of Current Condition Onset Date 2016 Current Complaints LBP, intermittent LE pain and constant tingling/burning in entire foot. History of Current Condition LBP after surgery for testicular torsion in 2016. Pain started in both feet and radiates in spots up the legs (front of the knees) into the entire lower back. PT referral to see if the problem is in the lower back. Recently went to ER, last week , for back spasms. Was given medication (anti-inflammatory & Naproxin) that didn't help a lot. He reports sometimes burning pain along the medial inginual ligament bilaterally. Prior Treatments and Tests See above for medications taking. Future Testing and Treatments Planned None planned. Treatment Goals Patient/Caregiver Goals Pt goal is to relieve pain in low back and lower 1/2 of the body, 2) be able to lift weights 3) run for long distance (>1/4 mile), 4) tolerate standing still (>3') 5) Sit w/o having to shift around or lean, 6) Walk >30', 7) Bend with less pain. Prior Functional Status Baseline Function- ADL's Independent Baseline Function- Mobility Independent Current Functional Impairments (Reported) Functional Limitations- ADL's Limited in Lifting, bending, standing & sitting tolerance. Functional Limitations- Mobility/Gait Not able to walking > 30' or run > 1/4 mile Personal Factors Other Personal Factors That May Effect Depression that pt is seeking Therapy/Recovery medical help for. Pt demonstrates high sympathetic nervous system and protective posturing. PT-OP-C Subjective Start: 01/09/20 12:45 Freq: Status: Active Protocol: Document 01/25/20 15:08 LRN (Rec: 01/25/20 16:24 LRN [id number]) OP-PT Subjective Patient Comments Patient Comments States yesterday he woke with lying on his back after a 3-4 hr nap, with excrutiating R medial knee pain, burning pain . Took 20' to go away trying to find a position to have it go away, which was on the stomach. PT-OP-H Neuro Start: 01/09/20 12:45 Freq: Status: Active Protocol: Document 01/09/20 14:23 LRN (Rec: 01/09/20 19:41 LRN [id number]) Sensation Evaluation Gross Sensation Sensation Description Hyperesthesia,Pins & [place] Dermatome Impairments L5,S1 Deep Tendon Reflex & Clonus Assessment Deep Tendon Reflex Bilateral Achilles Deep Tendon Reflex 3+ Normal But Brisk Left Patellar Deep Tendon Reflex 3+ Normal But Brisk PT-OP-J Posture/Palpation/Skin Start: 01/09/20 12:45 Freq: Status: Active Protocol: Document 01/09/20 14:23 LRN (Rec: 01/09/20 19:41 LRN [id number]) Posture Evaluation Position Standing Head/C-Spine Posture Neutral Position T-Spine Posture Neutral L-Spine Posture Rotation Right,Increased Lordosis Shoulder Posture Neutral Pelvis Posture Anteriorly Tilted Weight Distribution Balanced Comments Posture Comments Patient demonstrated protective posturing of the UE 's in standing, supine and prone with Palpation Assessment Location Lumbar region Palpation Location Posterior lumbar region Palpation Findings Soft Tissue Tightness,Muscle Guarding,Tenderness Palpation Details Spinous process of L1-L3, L5. Tranverse processes of L1 through L5 Lumbar paraspinals as indicated above PT-OP-K Range of Motion Start: 01/09/20 12:45 Freq: Status: Active Protocol: Document 01/22/20 09:07 LRN (Rec: 01/22/20 09:49 LRN [id number]) Hip Goniometric Range of Motion Hip Right Active Flexion w/Knee Flexed 70 Straight Leg Raise 30 Abduction 22 Left Active Flexion w/Knee Flexed 80 Straight Leg Raise 75 Abduction 27 Hip ROM Limitations Comments L add 27 DEG'S R add 32 DEG'S PT-OP-L Special Tests Start: 01/09/20 12:45 Freq: Status: Active Protocol: Document 01/09/20 14:23 LRN (Rec: 01/09/20 19:41 LRN [id number]) Special Tests Lumbar Spine Special Tests Vertical Spine Loading Test Results + Comments Pain reproduced in L low back Manual Traction Test Results - Comments No change with pain Kenan Test Results + bilaterally Comments Indicates very tight hip flexors Straight Leg Raise Test Results + bilaterally Comments L LBP with testing bilaterally indicating possible large disc involvement Slump Test Results + Comments Increased back pain PT-OP-M Strength Start: 01/09/20 12:45 Freq: Status: Active Protocol: Document 01/18/20 11:21 LRN (Rec: 01/18/20 12:21 LRN [id number]) Hip Strength Hip Manual Muscle Testing Right Flexion (L2) 4+ Good+ Extension (S1) 4 Good Abduction 4+ Good+ Adduction 4 Good External Rotation 5 Normal Internal Rotation 5 Normal Comments R hip ext: lacks ROM R hip AD: Causes L lateral trunk pain. Left Flexion (L2) 5 Normal Extension (S1) 5 Normal Abduction 5 Normal Adduction 5 Normal External Rotation 5 Normal Internal Rotation 5 Normal PT-OP-Q Treatments Start: 01/09/20 12:45 Freq: Status: Active Protocol: Document 01/25/20 15:08 LRN (Rec: 01/25/20 16:24 LRN [id number]) Therapeutic Exercises Supine Exercises DKTC Supine Exercise Name DKTC Reps/Minutes 5 hold x 2 Prone Exercises Quad stretch Prone Exercise Name Quad self stretch, f/b active stretch Side right Equipment Used Belt strap Reps/Minutes 8' Comments Pt needed training for proper stretch Manual Therapy Treatment Soft Tissue Mobilization Iliopsoas Body Location Iliopsoas Mobilization Type Trigger Point Release Intensity/Depth Superficial Body Position Prone Joint Mobilizations Sacrum Joint Correction for a R rotated sacrum Body Position Prone Reps/Duration 4' Manual Techniques Iliacus Type Passive Stretch Body Position Prone Reps/Duration 10 Quads Type C/R stretch Body Position Prone Reps/Duration 12' PT-OP-R Modalities Start: 01/09/20 12:45 Freq: Status: Active Protocol: Document 01/16/20 10:35 LRN (Rec: 01/16/20 11:23 LRN [id number]) Electric Stimulation Electric Stimulation LOW Back Body Location Low back , cross at sacrum Duration (Minutes) 13 Intensity 10 Patient Position Hooklying Combined With Heat/Cold Hot Pack Comments Pt reported throbbing pain at R knee at location of well healed scar (of childhood), that dissapated after EStim removed. Hot Pack/Cold Pack Treatment Hot Pack Location Low back w/EStim Patient Position Hooklying Treatment Duration (minutes) 15 Comments Pt taken off E-Stim but left on MH for a couple extra minutes. PT-OP-T Assessment and Plan Start: 01/09/20 12:45 Freq: Status: Active Protocol: Document 01/25/20 15:08 LRN (Rec: 01/25/20 16:24 LRN [id number]) Physical Therapy Assessment Goals Five Impairment Pt limited in ability to bend over (pain 8/10) or lift weights. Stockroom Helper Goal (LTG) Decrease pain in low back and lower 1/2 of the body, with pt will be able to bend over with less pain and lift light weights of 10#. LTG Duration 04/08/20 Four Impairment Extended posture of back and protective posturing. Short Term Goal (STG) Pt will be be able to correct for his excessive lumbar lordosis when cued. STG Duration 01/23/20 Stockroom Helper Goal (LTG) Pt will demonstrate improved awareness of his protective posturing and excessive lumbar lordosis, and will be able to self correct when cued or will independently self correct. LTG Duration 04/08/20 (01/18/20: Less protective posturing noted) Three Impairment Decreased activity tolerance and endurance. Short Term Goal (STG) Pt will be able to tolerate walking for >30' on level without limiting back/LE pain. STG Duration 02/27/20 Nursing Home Goal (LTG) Pt senior care goal is to be able to run at least a 1/4 mile distance, but appropriate goal would be for pt to be able to demonstrate ability to run for no greater than 10' prior to onset of limiting LBP . LTG Duration 04/08/20 Two Impairment Pain limiting funct'l static sitting (constant shifting) and standing (<3') Short Term Goal (STG) Improve posture & decrease LBP in standing with pt able to stand > 3'. STG Duration 02/27/20 Nursing Home Goal (LTG) Educate pt in proper sitting posture to minimize LBP, with pt able to sit for 25-30' prior to pt needing to shift to reduce back pain. LTG Duration 04/08/20 (01/18/20: Goal partially met, educated pt in proper sit posture) One Impairment Pt lacks appropriate self care HEP Nursing Home Goal (LTG) Pt will be independent with a self care HEP to manage his pain and mobility restrictions . LTG Duration 04/08/20 (01/18/20: Progressing) Assessment Summary Assessment No significant change with MFR of hip AD's. Pt demonstrates excessive lumbar lordosis possibly due to tight hip flexors. Unable to stretch his hip flexors due to Quad tightness. Pt may be having R knee pain due to excessive lumbar lumbar lordosis (L3), and decreased patella mobility due to protective rigid posturing. He was able to obtain a quad stretch in sitting without onset of LBP when proper posturing of his trunk. 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 Progress pt on a self care HEP; Issue & review for fig4, IR's, & hip flexor (sup/standing) stretch & TA control w/hip AD strengthening. Next visit: MFR to hip AD's, try Manual lumbar traction with increased lumbar pain. Assess response to CR stretching. If not tolerated well, try starting with exercise prior to stretching to improve mobility and decrease ms guarding. Body mechanics training for lifting. Educate lumbar protective posture (TA tightening) for functional and transfer activities.
--- NOTE | 2020-01-29 18:07 | PT.OTN ---
Current Diagnoses Low back pain (01/29/20) Pain in leg, unspecified (01/29/20) Abnormal posture (01/29/20) Physical Therapy Treatment Note PT-OP-A Visit Information Start: 01/09/20 12:45 Freq: Status: Active Protocol: Document 01/29/20 09:03 LRN (Rec: 01/29/20 09:56 LRN [id number]) Out-Patient Physical Therapy Visit Information Visit Information Visit Type Treatment Note Visit Start Time 09:03 Visit Stop Time 09:55 Total Visit Minutes 52 Visit Number 6 Evaluation Information Evaluation Date 01/09/20 Precautions Precautions Depression Prior Hx of Testicular torsion surgery in 2016. Bruises easily PT-OP-B Current Condition Start: 01/09/20 12:45 Freq: Status: Active Protocol: Document 01/09/20 14:23 LRN (Rec: 01/09/20 15:13 LRN [id number]) Current Condition History of Current Condition Onset Date 2016 Current Complaints LBP, intermittent LE pain and constant tingling/burning in entire foot. History of Current Condition LBP after surgery for testicular torsion in 2016. Pain started in both feet and radiates in spots up the legs (front of the knees) into the entire lower back. PT referral to see if the problem is in the lower back. Recently went to ER, last week , for back spasms. Was given medication (anti-inflammatory & Naproxin) that didn't help a lot. He reports sometimes burning pain along the medial inginual ligament bilaterally. Prior Treatments and Tests See above for medications taking. Future Testing and Treatments Planned None planned. Treatment Goals Patient/Caregiver Goals Pt goal is to relieve pain in low back and lower 1/2 of the body, 2) be able to lift weights 3) run for long distance (>1/4 mile), 4) tolerate standing still (>3') 5) Sit w/o having to shift around or lean, 6) Walk >30', 7) Bend with less pain. Prior Functional Status Baseline Function- ADL's Independent Baseline Function- Mobility Independent Current Functional Impairments (Reported) Functional Limitations- ADL's Limited in Lifting, bending, standing & sitting tolerance. Functional Limitations- Mobility/Gait Not able to walking > 30' or run > 1/4 mile Personal Factors Other Personal Factors That May Effect Depression that pt is seeking Therapy/Recovery medical help for. Pt demonstrates high sympathetic nervous system and protective posturing. PT-OP-C Subjective Start: 01/09/20 12:45 Freq: Status: Active Protocol: Document 01/29/20 09:03 LRN (Rec: 01/29/20 09:56 LRN [id number]) OP-PT Subjective Patient Comments Patient Comments States his R medial knee is burning today, woke with pain and the drive to clinic did not alleviate the pain. Pain to start was 4/10, after MWM walking it was 2/10. PT-OP-H Neuro Start: 01/09/20 12:45 Freq: Status: Active Protocol: Document 01/09/20 14:23 LRN (Rec: 01/09/20 19:41 LRN [id number]) Sensation Evaluation Gross Sensation Sensation Description Hyperesthesia,Pins & [place] Dermatome Impairments L5,S1 Deep Tendon Reflex & Clonus Assessment Deep Tendon Reflex Bilateral Achilles Deep Tendon Reflex 3+ Normal But Brisk Left Patellar Deep Tendon Reflex 3+ Normal But Brisk PT-OP-J Posture/Palpation/Skin Start: 01/09/20 12:45 Freq: Status: Active Protocol: Document 01/09/20 14:23 LRN (Rec: 01/09/20 19:41 LRN [id number]) Posture Evaluation Position Standing Head/C-Spine Posture Neutral Position T-Spine Posture Neutral L-Spine Posture Rotation Right,Increased Lordosis Shoulder Posture Neutral Pelvis Posture Anteriorly Tilted Weight Distribution Balanced Comments Posture Comments Patient demonstrated protective posturing of the UE 's in standing, supine and prone with Palpation Assessment Location Lumbar region Palpation Location Posterior lumbar region Palpation Findings Soft Tissue Tightness,Muscle Guarding,Tenderness Palpation Details Spinous process of L1-L3, L5. Tranverse processes of L1 through L5 Lumbar paraspinals as indicated above PT-OP-K Range of Motion Start: 01/09/20 12:45 Freq: Status: Active Protocol: Document 01/22/20 09:07 LRN (Rec: 01/22/20 09:49 LRN [id number]) Hip Goniometric Range of Motion Hip Right Active Flexion w/Knee Flexed 70 Straight Leg Raise 30 Abduction 22 Left Active Flexion w/Knee Flexed 80 Straight Leg Raise 75 Abduction 27 Hip ROM Limitations Comments L add 27 DEG'S R add 32 DEG'S PT-OP-L Special Tests Start: 06/16/20 12:45 Freq: Status: Active Protocol: Document 01/09/20 14:23 LRN (Rec: 01/09/20 19:41 LRN [id number]) Special Tests Lumbar Spine Special Tests Vertical Spine Loading Test Results + Comments Pain reproduced in L low back Manual Traction Test Results - Comments No change with pain Kenan Test Results + bilaterally Comments Indicates very tight hip flexors Straight Leg Raise Test Results + bilaterally Comments L LBP with testing bilaterally indicating possible large disc involvement Slump Test Results + Comments Increased back pain PT-OP-M Strength Start: 01/09/20 12:45 Freq: Status: Active Protocol: Document 01/18/20 11:21 LRN (Rec: 01/18/20 12:21 LRN [id number]) Hip Strength Hip Manual Muscle Testing Right Flexion (L2) 4+ Good+ Extension (S1) 4 Good Abduction 4+ Good+ Adduction 4 Good External Rotation 5 Normal Internal Rotation 5 Normal Comments R hip ext: lacks ROM R hip AD: Causes L lateral trunk pain. Left Flexion (L2) 5 Normal Extension (S1) 5 Normal Abduction 5 Normal Adduction 5 Normal External Rotation 5 Normal Internal Rotation 5 Normal PT-OP-Q Treatments Start: 01/09/20 12:45 Freq: Status: Active Protocol: Document 01/29/20 09:03 LRN (Rec: 01/29/20 09:56 LRN [id number]) Therapeutic Exercises Supine Exercises Fig 4 stretch Supine Exercise Name Fig 4 stretch, R>L, f/b active stretch Side right Comments 5-10 hold x 10 DKTC Supine Exercise Name DKTC Reps/Minutes 5 hold x 2 Comments Pain in LB & stretch in legs. Bridging Supine Exercise Name Bridging w/hip AB Resistance L2 T-Band Reps/Minutes 10x 2 Comments Pain LB & stretch in legs Prone Exercises Quad stretch Prone Exercise Name Quad self stretch, f/b active stretch Side right Equipment Used Belt strap Reps/Minutes 8' Comments Pt needed training for proper stretch Other Exercises Thread the Needle Other Exercise Name Thread the Needle - Left Side left Reps/Minutes 5-10 hold x 10 Rock Back Other Exercise Name Rock Back Reps/Minutes 10x 3-5 hold Cat/Camel Other Exercise Name Cat/Camel Reps/Minutes 10x 3-5 holds Comments Ext at R T10-T12; Flex at L/S Manual Therapy Treatment Soft Tissue Mobilization Myokinesthetic stretch Body Location Bilateral hip AD's Intensity/Depth Moderate Body Position Supine Manual Techniques MWM Type T10-T12 PA on R Transverse process. Body Position Walking Reps/Duration 8' Comments Pain decreased 4/10 to 2/10 during treatment, pain relief did not maintain with further walking. Self-Care/Home Management Treatment Education Patient Education Home Exercise Program Other Education Educated pt in self MWM ( Derotating T10-T12) during walking to decrease R knee pain. Activities Self-Care/Home Management Activities HEP issued & reviewed: Cat/ Camel, Rock backs, Thread the needle, & fig 4 stretch. I/S pt to stretch hip flexors by lying on towels similar to the hot packs. PT-OP-R Modalities Start: 01/09/20 12:45 Freq: Status: Active Protocol: Document 01/29/20 09:03 LRN (Rec: 01/29/20 17:52 LRN [id number]) Hot Pack/Cold Pack Treatment Hot Pack Location Low back Treatment Duration (minutes) 10 Patient Tolerance Good Comments Pt positioned for Iliopsoas stretch PT-OP-T Assessment and Plan Start: 01/09/20 12:45 Freq: Status: Active Protocol: Document 01/29/20 09:03 LRN (Rec: 01/29/20 09:56 LRN [id number]) Physical Therapy Assessment Goals Five Impairment Pt limited in ability to bend over (pain 8/10) or lift weights. Liquid Yeast Supervisor Goal (LTG) Decrease pain in low back and lower 1/2 of the body, with pt will be able to bend over with less pain and lift light weights of 10#. LTG Duration 04/08/20 Four Impairment Extended posture of back and protective posturing. Short Term Goal (STG) Pt will be be able to correct for his excessive lumbar lordosis when cued. STG Duration 01/23/20 Half-Way Goal (LTG) Pt will demonstrate improved awareness of his protective posturing and excessive lumbar lordosis, and will be able to self correct when cued or will independently self correct. LTG Duration 04/08/20 (01/18/20: Less protective posturing noted) Three Impairment Decreased activity tolerance and endurance. Short Term Goal (STG) Pt will be able to tolerate walking for >30' on level without limiting back/LE pain. STG Duration 02/27/20 Half-Way Goal (LTG) Pt terminal make up operator goal is to be able to run at least a 1/4 mile distance, but appropriate goal would be for pt to be able to demonstrate ability to run for no greater than 10' prior to onset of limiting LBP . LTG Duration 04/08/20 Two Impairment Pain limiting funct'l static sitting (constant shifting) and standing (<3') Short Term Goal (STG) Improve posture & decrease LBP in standing with pt able to stand > 3'. STG Duration 02/27/20 Liquid Yeast Supervisor Goal (LTG) Educate pt in proper sitting posture to minimize LBP, with pt able to sit for 25-30' prior to pt needing to shift to reduce back pain. LTG Duration 04/08/20 (01/18/20: Goal partially met, educated pt in proper sit posture) One Impairment Pt lacks appropriate self care HEP Half-Way Goal (LTG) Pt will be independent with a self care HEP to manage his pain and mobility restrictions . LTG Duration 04/08/20 (01/18/20: Progressing) Assessment Summary Assessment Pain decreased at R knee 4/10 to 1/10 after therapy. Trunk, upper and lower back, was looser after therapy. Pt is having less lingering sensations with palpation of LE's. Physical Therapy Plan Frequency and Duration Frequency of Treatment 2x/Week Plan of Care Start Date 01/09/20 Plan of Care End Date 04/08/20 Next Visit Focus/Plan Next Note Type Treatment Note Next Visit Plan [place] in January, possibly 02/12/20. Review self MWM if R knee pain , and previously issued HEP ( cat/camel, rockback, fig 4 stretch & lying sup on pad to get hip flexor stretch). Try starting with exercise prior to stretching to improve mobility and decrease ms guarding. Body mechanics training for lifting. Progress pt on a self care HEP ; Issue & review hip IR stretch, active HS stretch & prone wiper ROM. TA control w/hip AD strengthening . MFR to hip AD's, try Manual lumbar traction if increased lumbar pain. Assess response to CR stretching. If not Educate lumbar protective posture (TA tightening) for functional and transfer activities.
--- NOTE | 2020-02-02 17:00 | PT.OTN ---
Current Diagnoses Low back pain (02/02/20) Pain in leg, unspecified (02/02/20) Abnormal posture (02/02/20) Physical Therapy Treatment Note PT-OP-A Visit Information Start: 01/09/20 12:45 Freq: Status: Active Protocol: Document 02/02/20 13:38 LRN (Rec: 02/02/20 14:33 LRN [id number]) Out-Patient Physical Therapy Visit Information Visit Information Visit Type Treatment Note Visit Start Time 13:38 Visit Stop Time 14:33 Total Visit Minutes 42 Visit Number 7 Evaluation Information Evaluation Date 01/09/20 Precautions Precautions Depression Prior Hx of Testicular torsion surgery in 2016. Bruises easily PT-OP-B Current Condition Start: 01/09/20 12:45 Freq: Status: Active Protocol: Document 01/09/20 14:23 LRN (Rec: 01/09/20 15:13 LRN [id number]) Current Condition History of Current Condition Onset Date 2016 Current Complaints LBP, intermittent LE pain and constant tingling/burning in entire foot. History of Current Condition LBP after surgery for testicular torsion in 2016. Pain started in both feet and radiates in spots up the legs (front of the knees) into the entire lower back. PT referral to see if the problem is in the lower back. Recently went to ER, last week , for back spasms. Was given medication (anti-inflammatory & Naproxin) that didn't help a lot. He reports sometimes burning pain along the medial inginual ligament bilaterally. Prior Treatments and Tests See above for medications taking. Future Testing and Treatments Planned None planned. Treatment Goals Patient/Caregiver Goals Pt goal is to relieve pain in low back and lower 1/2 of the body, 2) be able to lift weights 3) run for long distance (>1/4 mile), 4) tolerate standing still (>3') 5) Sit w/o having to shift around or lean, 6) Walk >30', 7) Bend with less pain. Prior Functional Status Baseline Function- ADL's Independent Baseline Function- Mobility Independent Current Functional Impairments (Reported) Functional Limitations- ADL's Limited in Lifting, bending, standing & sitting tolerance. Functional Limitations- Mobility/Gait Not able to walking > 30' or run > 1/4 mile Personal Factors Other Personal Factors That May Effect Depression that pt is seeking Therapy/Recovery medical help for. Pt demonstrates high sympathetic nervous system and protective posturing. PT-OP-C Subjective Start: 01/09/20 12:45 Freq: Status: Active Protocol: Document 02/02/20 13:38 LRN (Rec: 02/02/20 14:33 LRN [id number]) OP-PT Subjective Patient Comments Patient Comments States every night since last visit he wakes at 2a with pain 8/10 in R medial knee joint and superior to patella. Back hurts in certain spots on L side, minimum rated 4/10, R knee pain 7/10. PT-OP-H Neuro Start: 01/09/20 12:45 Freq: Status: Active Protocol: Document 01/09/20 14:23 LRN (Rec: 01/09/20 19:41 LRN [id number]) Sensation Evaluation Gross Sensation Sensation Description Hyperesthesia,Pins & [place] Dermatome Impairments L5,S1 Deep Tendon Reflex & Clonus Assessment Deep Tendon Reflex Bilateral Achilles Deep Tendon Reflex 3+ Normal But Brisk Left Patellar Deep Tendon Reflex 3+ Normal But Brisk PT-OP-J Posture/Palpation/Skin Start: 01/09/20 12:45 Freq: Status: Active Protocol: Document 01/09/20 14:23 LRN (Rec: 01/09/20 19:41 LRN [id number]) Posture Evaluation Position Standing Head/C-Spine Posture Neutral Position T-Spine Posture Neutral L-Spine Posture Rotation Right,Increased Lordosis Shoulder Posture Neutral Pelvis Posture Anteriorly Tilted Weight Distribution Balanced Comments Posture Comments Patient demonstrated protective posturing of the UE 's in standing, supine and prone with Palpation Assessment Location Lumbar region Palpation Location Posterior lumbar region Palpation Findings Soft Tissue Tightness,Muscle Guarding,Tenderness Palpation Details Spinous process of L1-L3, L5. Tranverse processes of L1 through L5 Lumbar paraspinals as indicated above PT-OP-K Range of Motion Start: 01/09/20 12:45 Freq: Status: Active Protocol: Document 01/22/20 09:07 LRN (Rec: 01/22/20 09:49 LRN [id number]) Hip Goniometric Range of Motion Hip Right Active Flexion w/Knee Flexed 70 Straight Leg Raise 30 Abduction 22 Left Active Flexion w/Knee Flexed 80 Straight Leg Raise 75 Abduction 27 Hip ROM Limitations Comments L add 27 DEG'S R add 32 DEG'S PT-OP-L Special Tests Start: 01/09/20 12:45 Freq: Status: Active Protocol: Document 01/09/20 14:23 LRN (Rec: 01/09/20 19:41 LRN [id number]) Special Tests Lumbar Spine Special Tests Vertical Spine Loading Test Results + Comments Pain reproduced in L low back Manual Traction Test Results - Comments No change with pain Kenan Test Results + bilaterally Comments Indicates very tight hip flexors Straight Leg Raise Test Results + bilaterally Comments L LBP with testing bilaterally indicating possible large disc involvement Slump Test Results + Comments Increased back pain PT-OP-M Strength Start: 01/09/20 12:45 Freq: Status: Active Protocol: Document 01/18/20 11:21 LRN (Rec: 01/18/20 12:21 LRN [id number]) Hip Strength Hip Manual Muscle Testing Right Flexion (L2) 4+ Good+ Extension (S1) 4 Good Abduction 4+ Good+ Adduction 4 Good External Rotation 5 Normal Internal Rotation 5 Normal Comments R hip ext: lacks ROM R hip AD: Causes L lateral trunk pain. Left Flexion (L2) 5 Normal Extension (S1) 5 Normal Abduction 5 Normal Adduction 5 Normal External Rotation 5 Normal Internal Rotation 5 Normal PT-OP-Q Treatments Start: 01/09/20 12:45 Freq: Status: Active Protocol: Document 02/02/20 13:38 LRN (Rec: 02/02/20 14:33 LRN [id number]) Cardio Equipment Bicycle (Upright) Duration (Minutes) 8 Resistance 1 Seat Position lowest possible Other No pain increase, only throbbing in R knee & tightening in LB Therapeutic Exercises Supine Exercises Full body trunk rot Supine Exercise Name Upper body R rot, LE's L rot. Reps/Minutes Hold 30 x 4 Lower trunk rotation stretch Supine Exercise Name Assisted stretch with knee rolls left Reps/Minutes 3' Piriformis stretching Supine Exercise Name Lateral hip pull, knee to shoulder & X-leg lift Side bilateral Reps/Minutes 6' Comments Much physical assist needed to position LE's properly and relax legs. Hamstring stretch Supine Exercise Name Hamstring/LE neural stretch Side bilateral Reps/Minutes 4' Comments Determined needed belt for R side to feel stretch Fig 4 stretch Supine Exercise Name Fig 4 stretch, R>L, f/b active stretch Side bilateral Reps/Minutes 5-10 hold x 10, f/b active stretching Comments Pt needed assist with holding L leg due to onset of ms cramps and pain on R Prone Exercises Wipers for trunk rot Prone Exercise Name Wiper stretch Side bilateral Reps/Minutes 2' Comments Tried various positions of knee flex and pt rotating, not good stretch Quad stretch Prone Exercise Name Quad self stretch, f/b active stretch Side right Equipment Used Belt strap Reps/Minutes 8' Comments Assist to prevent pelvic ant rot. L Quad tight, flexed 45 deg R 90 deg Self-Care/Home Management Treatment Education Other Education Discussed STM and scar tissue involvement with pain when moving other areas of body. Recommended pt speak to surgeon regarding lack of closure of incision site of testicular region. Activities Self-Care/Home Management Activities I/S pt in full body R rotation of trunk (shoulders/arms in opposite direction). Pt has lack of mobility to R>L. Pt again encouraged to do self STM of trunk/hips/surgical site. PT-OP-R Modalities Start: 01/09/20 12:45 Freq: Status: Active Protocol: Document 01/29/20 09:03 LRN (Rec: 01/29/20 17:52 LRN [id number]) Hot Pack/Cold Pack Treatment Hot Pack Location Low back Treatment Duration (minutes) 10 Patient Tolerance Good Comments Pt positioned for Iliopsoas stretch PT-OP-T Assessment and Plan Start: 01/09/20 12:45 Freq: Status: Active Protocol: Document 02/02/20 13:38 LRN (Rec: 02/02/20 14:33 LRN [id number]) Physical Therapy Assessment Goals Five Impairment Pt limited in ability to bend over (pain 8/10) or lift weights. [employer] Driver Goal (LTG) Decrease pain in low back and lower 1/2 of the body, with pt will be able to bend over with less pain and lift light weights of 10#. LTG Duration 04/08/20 Four Impairment Extended posture of back and protective posturing. Short Term Goal (STG) Pt will be be able to correct for his excessive lumbar lordosis when cued. STG Duration 01/23/20 Detention Goal (LTG) Pt will demonstrate improved awareness of his protective posturing and excessive lumbar lordosis, and will be able to self correct when cued or will independently self correct. LTG Duration 04/08/20 (01/18/20: Less protective posturing noted) Three Impairment Decreased activity tolerance and endurance. Short Term Goal (STG) Pt will be able to tolerate walking for >30' on level without limiting back/LE pain. 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 LTG Duration 04/08/20 Two Impairment Pain limiting funct'l static sitting (constant shifting) and standing (<3') Short Term Goal (STG) Improve posture & decrease LBP in standing with pt able to stand > 3'. STG Duration 02/27/20 [employer] Driver Goal (LTG) Educate pt in proper sitting posture to minimize LBP, with pt able to sit for 25-30' prior to pt needing to shift to reduce back pain. LTG Duration 04/08/20 (01/18/20: Goal partially met, educated pt in proper sit posture) One Impairment Pt lacks appropriate self care HEP Detention Goal (LTG) Pt will be independent with a self care HEP to manage his pain and mobility restrictions . LTG Duration 04/08/20 (01/18/20: Progressing) Progress Towards Goals Progress Towards Goals Slow Progress due to Activity Tolerance Progress Comments Pt limiting R hip/groin pain with introduction to hip stretches. Assessment Summary Assessment Pt had poor tolerance to hip IR rotation stretches due to R lateral thigh discomfort ( during hamstring/LE neural stretch), R groin pain (during Piriformis stretches) & muscle cramps on left (during Fig 4 stretch). Pt appears to have much trunk fascial restrictions probably causing pain on R side with stretches . PSLR positioning on the L has R lateral hip and knee pain indicating possible lumbar involvement. Pt continues to have a difficult time disassociating his limbs from his core or other limbs. He notices he has a difficult time relaxing his body. Exercise warm up (bike) he was beneficial to decrease muscle guarding for stretching, and he felt LE muscles tighter afterwards. His posture was good on the ex bike, almost too rigid. Pt would benefit from further therapy of fascial soft tissue mobilization and a consultation for mindfulness training for relaxation and pain management. Physical Therapy Plan Frequency and Duration Frequency of Treatment 2x/Week Plan of Care Start Date 01/09/20 Plan of Care End Date 04/08/20 Next Visit Focus/Plan Next Note Type Treatment Note Next Visit Plan [place] in January, possibly 02/12/20; therefore 1 more visit then DC to HEP. Recommend pt to continue PT rehab in [place]. Assess progress to goals ( trunk mobility and associated pain, self posture corrections and awareness, sit & stand tolerance/posture sitting). Body mechanics training for lifting and tolerance to lift 10#. Issue & review HEP: hip IR stretch, active HS stretch, supine full body rot stretch, & TA control w/hip AD strengthening. Review self MWM to L3 for R knee pain, Review HEP: previously issued ex's (cat/camel, rockback, fig 4 stretch & lying sup on pad to get hip flexor stretch and supine full body R trunk rot stretch). Review lumbar protective posture (TA tightening) for functional and transfer activities to limit excessive lordosis. Try Manual lumbar traction if increased lumbar pain.
--- NOTE | 2020-02-05 16:42 | PT.OTN ---
Current Diagnoses Low back pain (02/05/20) Pain in leg, unspecified (02/05/20) Abnormal posture (02/05/20) Physical Therapy Treatment Note PT-OP-A Visit Information Start: 01/09/20 12:45 Freq: Status: Active Protocol: Document 02/05/20 09:48 LRN (Rec: 02/05/20 10:37 LRN [id number]) Out-Patient Physical Therapy Visit Information Visit Information Visit Type Treatment Note Visit Start Time 09:48 Visit Stop Time 10:37 Total Visit Minutes 49 Visit Number 8 Evaluation Information Evaluation Date 01/09/20 Precautions Precautions Depression Prior Hx of Testicular torsion surgery in 2016. Bruises easily PT-OP-B Current Condition Start: 01/09/20 12:45 Freq: Status: Active Protocol: Document 01/09/20 14:23 LRN (Rec: 01/09/20 15:13 LRN [id number]) Current Condition History of Current Condition Onset Date 2016 Current Complaints LBP, intermittent LE pain and constant tingling/burning in entire foot. History of Current Condition LBP after surgery for testicular torsion in 2016. Pain started in both feet and radiates in spots up the legs (front of the knees) into the entire lower back. PT referral to see if the problem is in the lower back. Recently went to ER, last week , for back spasms. Was given medication (anti-inflammatory & Naproxin) that didn't help a lot. He reports sometimes burning pain along the medial inginual ligament bilaterally. Prior Treatments and Tests See above for medications taking. Future Testing and Treatments Planned None planned. Treatment Goals Patient/Caregiver Goals Pt goal is to relieve pain in low back and lower 1/2 of the body, 2) be able to lift weights 3) run for long distance (>1/4 mile), 4) tolerate standing still (>3') 5) Sit w/o having to shift around or lean, 6) Walk >30', 7) Bend with less pain. Prior Functional Status Baseline Function- ADL's Independent Baseline Function- Mobility Independent Current Functional Impairments (Reported) Functional Limitations- ADL's Limited in Lifting, bending, standing & sitting tolerance. Functional Limitations- Mobility/Gait Not able to walking > 30' or run > 1/4 mile Personal Factors Other Personal Factors That May Effect Depression that pt is seeking Therapy/Recovery medical help for. Pt demonstrates high sympathetic nervous system and protective posturing. PT-OP-C Subjective Start: 01/09/20 12:45 Freq: Status: Active Protocol: Document 02/05/20 09:48 LRN (Rec: 02/05/20 10:37 LRN [id number]) OP-PT Subjective Patient Comments Patient Comments R knee is becoming more painful. Back is constant at 5/10 sharp stabbing, that may be a little lower. States he is worried that there is green discoloration and was wondering if he should be seen in ER for it. Patient Questionnaires Foot & Ankle Ability Measure- ADL and Sports FAAM-ADL Score .... Lower Extremity Functional Scale LEFS Score 40 on 02/05/20 LEFS Impairment 40 to 59% Impaired (Score 32- 47) OP-PT Pain Assessment Pain Assessment Grid Paper Pain Assessment Grid Completed Yes Location Head Pain Location Details Top of head Intensity 4 L shoulder Pain Location Details Top of L shoulder Intensity 2 [place] feet Pain Location Details Dorsal surface of feet at ankle and distal to ankle R medial knee Pain Location Details Medial R knee Intensity 8 Testicular region Pain Location Details Testicular region Intensity 7 Low back Pain Location Details Low back, left side. Intensity 6 PT-OP-H Neuro Start: 01/09/20 12:45 Freq: Status: Active Protocol: Document 01/09/20 14:23 LRN (Rec: 01/09/20 19:41 LRN [id number]) Sensation Evaluation Gross Sensation Sensation Description Hyperesthesia,Pins & [place] Dermatome Impairments L5,S1 Deep Tendon Reflex & Clonus Assessment Deep Tendon Reflex Bilateral Achilles Deep Tendon Reflex 3+ Normal But Brisk Left Patellar Deep Tendon Reflex 3+ Normal But Brisk PT-OP-J Posture/Palpation/Skin Start: 01/09/20 12:45 Freq: Status: Active Protocol: Document 01/09/20 14:23 LRN (Rec: 01/09/20 19:41 LRN [id number]) Posture Evaluation Position Standing Head/C-Spine Posture Neutral Position T-Spine Posture Neutral L-Spine Posture Rotation Right,Increased Lordosis Shoulder Posture Neutral Pelvis Posture Anteriorly Tilted Weight Distribution Balanced Comments Posture Comments Patient demonstrated protective posturing of the UE 's in standing, supine and prone with Palpation Assessment Location Lumbar region Palpation Location Posterior lumbar region Palpation Findings Soft Tissue Tightness,Muscle Guarding,Tenderness Palpation Details Spinous process of L1-L3, L5. Tranverse processes of L1 through L5 Lumbar paraspinals as indicated above PT-OP-K Range of Motion Start: 01/09/20 12:45 Freq: Status: Active Protocol: Document 01/22/20 09:07 LRN (Rec: 01/22/20 09:49 LRN [id number]) Hip Goniometric Range of Motion Hip Right Active Flexion w/Knee Flexed 70 Straight Leg Raise 30 Abduction 22 Left Active Flexion w/Knee Flexed 80 Straight Leg Raise 75 Abduction 27 Hip ROM Limitations Comments L add 27 DEG'S R add 32 DEG'S PT-OP-L Special Tests Start: 01/09/20 12:45 Freq: Status: Active Protocol: Document 01/09/20 14:23 LRN (Rec: 01/09/20 19:41 LRN [id number]) Special Tests Lumbar Spine Special Tests Vertical Spine Loading Test Results + Comments Pain reproduced in L low back Manual Traction Test Results - Comments No change with pain Kenan Test Results + bilaterally Comments Indicates very tight hip flexors Straight Leg Raise Test Results + bilaterally Comments L LBP with testing bilaterally indicating possible large disc involvement Slump Test Results + Comments Increased back pain PT-OP-M Strength Start: 01/09/20 12:45 Freq: Status: Active Protocol: Document 01/18/20 11:21 LRN (Rec: 01/18/20 12:21 LRN [id number]) Hip Strength Hip Manual Muscle Testing Right Flexion (L2) 4+ Good+ Extension (S1) 4 Good Abduction 4+ Good+ Adduction 4 Good External Rotation 5 Normal Internal Rotation 5 Normal Comments R hip ext: lacks ROM R hip AD: Causes L lateral trunk pain. Left Flexion (L2) 5 Normal Extension (S1) 5 Normal Abduction 5 Normal Adduction 5 Normal External Rotation 5 Normal Internal Rotation 5 Normal PT-OP-Q Treatments Start: 01/09/20 12:45 Freq: Status: Active Protocol: Document 02/05/20 09:48 LRN (Rec: 02/05/20 10:37 LRN [id number]) Therapeutic Exercises Supine Exercises Iliopsoas stretch Supine Exercise Name Iliacus stretch Side bilateral Reps/Minutes 60 Hip IR stretch Supine Exercise Name Stretch IT Band (ankle Xover opposite knee to rotate knee into IR) Side bilateral Reps/Minutes 30 x 2 Comments L ankle over knee reduced medial knee pain. Full body trunk rot Supine Exercise Name Upper body R rot, LE's L rot. Reps/Minutes Hold 60 x 2 Fig 4 stretch Supine Exercise Name Fig 4 stretch, R>L, f/b active stretch Side bilateral Reps/Minutes 5-10 hold x 10, f/b active stretching Comments Pt needed assist with holding L leg due to onset of ms cramps and pain on R Prone Exercises Press ups Prone Exercise Name Press ups with minimal lift to get L3, L2 ext. Reps/Minutes 10x Comments Oscillation to correct for L rotated and 1x PA glide L/S given as needed. Other Exercises Thread the Needle Other Exercise Name Reviewed Thread the Needle - Left Side left Manual Therapy Treatment Joint Mobilizations L2-L3 Joint L2-L3 Direction Correcting a L rotated and posterior L/S Grade II Comments Pt had decrease in R knee (8 to 6/10) and back (6-4/10) pain by 2 levels. Sacrum Joint Sacrum Direction Correcting a flexed sacrum Body Position Prone Reps/Duration 4' Comments Improved Sacral positioning to reduce flexion. Self-Care/Home Management Treatment Education Patient Education Home Exercise Program Other Education Recommended pt continue PT rehab in [place]. Activities Self-Care/Home Management Activities Issued HEP: full body trunk rotation stretch (feet to L, head to R), Supine IT Band stretch to L/. Quick review of Piriformis stretch in supine. PT-OP-R Modalities Start: 01/09/20 12:45 Freq: Status: Active Protocol: Document 02/05/20 09:48 LRN (Rec: 02/05/20 15:59 LRN [id number]) Hot Pack/Cold Pack Treatment Hot Pack Location Low back Treatment Duration (minutes) 10 Patient Tolerance Good Comments MH used during hip and Iliopsoas stretch. PT-OP-T Assessment and Plan Start: 01/09/20 12:45 Freq: Status: Active Protocol: Document 02/05/20 09:48 LRN (Rec: 02/05/20 10:37 LRN [id number]) Physical Therapy Assessment Goals Five Impairment Pt limited in ability to bend over (pain 8/10) or lift weights. [employer] Attendant Goal (LTG) Decrease pain in low back and lower 1/2 of the body, with pt will be able to bend over with less pain and lift light weights of 10#. LTG Duration 04/08/20 Four Impairment Extended posture of back and protective posturing. Short Term Goal (STG) Pt will be be able to correct for his excessive lumbar lordosis when cued. STG Duration 01/23/20 [employer] Attendant Goal (LTG) Pt will demonstrate improved awareness of his protective posturing and excessive lumbar lordosis, and will be able to self correct when cued or will independently self correct. LTG Duration 04/08/20 (01/18/20: Less protective posturing noted) Three Impairment Decreased activity tolerance and endurance. Short Term Goal (STG) Pt will be able to tolerate walking for >30' on level without limiting back/LE pain. 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 LTG Duration 04/08/20 Two Impairment Pain limiting funct'l static sitting (constant shifting) and standing (<3') Short Term Goal (STG) Improve posture & decrease LBP in standing with pt able to stand > 3'. STG Duration 02/27/20 [employer] Attendant Goal (LTG) Educate pt in proper sitting posture to minimize LBP, with pt able to sit for 25-30' prior to pt needing to shift to reduce back pain. LTG Duration 04/08/20 (01/18/20: Goal partially met, educated pt in proper sit posture) One Impairment Pt lacks appropriate self care HEP [employer] Attendant Goal (LTG) Pt will be independent with a self care HEP to manage his pain and mobility restrictions . LTG Duration 04/08/20 (02/05/20: Progressing) Progress Towards Goals Progress Comments Pt had decrease in R knee (8 to 6/10) and back (6-4/10) pain by 2 levels. Assessment Summary Assessment Pt has some symptomatic complaints of pre numbness sensation of R LE (knee, anterior lower leg and dorsal surface of foot), showing other signs of R lumbar involvement. Previous signs of L PSLR resulting in R LE pain indicates possible neural involvement. Additionally, pt is concerned over green coloration of penis at old incision site. Held manual therapy and stretches directly affecting the region due pt concerns. He will be trying to get approval of ER visit. Physical Therapy Plan Frequency and Duration Frequency of Treatment 2x/Week Plan of Care Start Date 01/09/20 Plan of Care End Date 04/08/20 Next Visit Focus/Plan Next Note Type Treatment Note Next Visit Plan [place] in January, possibly 02/19/20; therefore continue as able due to full schedules for placement on HEP . Assess progress to goals ( trunk mobility and associated pain, self posture corrections and awareness, sit & stand tolerance/posture sitting). Body mechanics training for lifting and tolerance to lift 10#. Issue & review HEP: active HS stretch, & TA control w/hip AD strengthening. Review self MWM to L3 for R knee pain, Review HEP: previously issued ex's (cat/camel, rockback, fig 4 stretch). Review TA tightening for functional and transfer activities to limit excessive lordosis. Try Manual lumbar traction if increased lumbar pain.
--- NOTE | 2020-02-12 18:59 | PT.OTN ---
Current Diagnoses Low back pain (02/12/20) Pain in leg, unspecified (02/12/20) Abnormal posture (02/12/20) Physical Therapy Treatment Note PT-OP-A Visit Information Start: 01/09/20 12:45 Freq: Status: Active Protocol: Document 02/12/20 08:15 LRN (Rec: 02/12/20 09:27 LRN [id number]) Out-Patient Physical Therapy Visit Information Visit Information Visit Type Treatment Note Visit Start Time 08:15 Visit Stop Time 09:05 Total Visit Minutes 50 Visit Number 9 Evaluation Information Evaluation Date 01/09/20 Precautions Precautions Depression Prior Hx of Testicular torsion surgery in 2016. Bruises easily PT-OP-B Current Condition Start: 01/09/20 12:45 Freq: Status: Active Protocol: Document 01/09/20 14:23 LRN (Rec: 01/09/20 15:13 LRN [id number]) Current Condition History of Current Condition Onset Date 2016 Current Complaints LBP, intermittent LE pain and constant tingling/burning in entire foot. History of Current Condition LBP after surgery for testicular torsion in 2016. Pain started in both feet and radiates in spots up the legs (front of the knees) into the entire lower back. PT referral to see if the problem is in the lower back. Recently went to ER, last week , for back spasms. Was given medication (anti-inflammatory & Naproxin) that didn't help a lot. He reports sometimes burning pain along the medial inginual ligament bilaterally. Prior Treatments and Tests See above for medications taking. Future Testing and Treatments Planned None planned. Treatment Goals Patient/Caregiver Goals Pt goal is to relieve pain in low back and lower 1/2 of the body, 2) be able to lift weights 3) run for long distance (>1/4 mile), 4) tolerate standing still (>3') 5) Sit w/o having to shift around or lean, 6) Walk >30', 7) Bend with less pain. Prior Functional Status Baseline Function- ADL's Independent Baseline Function- Mobility Independent Current Functional Impairments (Reported) Functional Limitations- ADL's Limited in Lifting, bending, standing & sitting tolerance. Functional Limitations- Mobility/Gait Not able to walking > 30' or run > 1/4 mile Personal Factors Other Personal Factors That May Effect Depression that pt is seeking Therapy/Recovery medical help for. Pt demonstrates high sympathetic nervous system and protective posturing. PT-OP-C Subjective Start: 01/09/20 12:45 Freq: Status: Active Protocol: Document 02/12/20 08:15 LRN (Rec: 02/12/20 09:27 LRN [id number]) OP-PT Subjective Patient Comments Patient Comments States he doesn't have an infection in the surgical site , and will have to see a neurolgist, Dr. Angel. Back pain is 5/10, less knee pain today 3/10, groin pain is 6/10 . Been doing stretches. After last session no change. Has been lifting boxes because of packing. PT-OP-H Neuro Start: 01/09/20 12:45 Freq: Status: Active Protocol: Document 01/09/20 14:23 LRN (Rec: 01/09/20 19:41 LRN [id number]) Sensation Evaluation Gross Sensation Sensation Description Hyperesthesia,Pins & [place] Dermatome Impairments L5,S1 Deep Tendon Reflex & Clonus Assessment Deep Tendon Reflex Bilateral Achilles Deep Tendon Reflex 3+ Normal But Brisk Left Patellar Deep Tendon Reflex 3+ Normal But Brisk PT-OP-J Posture/Palpation/Skin Start: 01/09/20 12:45 Freq: Status: Active Protocol: Document 01/09/20 14:23 LRN (Rec: 01/09/20 19:41 LRN [id number]) Posture Evaluation Position Standing Head/C-Spine Posture Neutral Position T-Spine Posture Neutral L-Spine Posture Rotation Right,Increased Lordosis Shoulder Posture Neutral Pelvis Posture Anteriorly Tilted Weight Distribution Balanced Comments Posture Comments Patient demonstrated protective posturing of the UE 's in standing, supine and prone with Palpation Assessment Location Lumbar region Palpation Location Posterior lumbar region Palpation Findings Soft Tissue Tightness,Muscle Guarding,Tenderness Palpation Details Spinous process of L1-L3, L5. Tranverse processes of L1 through L5 Lumbar paraspinals as indicated above PT-OP-K Range of Motion Start: 01/09/20 12:45 Freq: Status: Active Protocol: Document 01/22/20 09:07 LRN (Rec: 01/22/20 09:49 LRN [id number]) Hip Goniometric Range of Motion Hip Right Active Flexion w/Knee Flexed 70 Straight Leg Raise 30 Abduction 22 Left Active Flexion w/Knee Flexed 80 Straight Leg Raise 75 Abduction 27 Hip ROM Limitations Comments L add 27 DEG'S R add 32 DEG'S PT-OP-L Special Tests Start: 01/09/20 12:45 Freq: Status: Active Protocol: Document 01/09/20 14:23 LRN (Rec: 01/09/20 19:41 LRN [id number]) Special Tests Lumbar Spine Special Tests Vertical Spine Loading Test Results + Comments Pain reproduced in L low back Manual Traction Test Results - Comments No change with pain Kenan Test Results + bilaterally Comments Indicates very tight hip flexors Straight Leg Raise Test Results + bilaterally Comments L LBP with testing bilaterally indicating possible large disc involvement Slump Test Results + Comments Increased back pain PT-OP-M Strength Start: 01/09/20 12:45 Freq: Status: Active Protocol: Document 01/18/20 11:21 LRN (Rec: 01/18/20 12:21 LRN [id number]) Hip Strength Hip Manual Muscle Testing Right Flexion (L2) 4+ Good+ Extension (S1) 4 Good Abduction 4+ Good+ Adduction 4 Good External Rotation 5 Normal Internal Rotation 5 Normal Comments R hip ext: lacks ROM R hip AD: Causes L lateral trunk pain. Left Flexion (L2) 5 Normal Extension (S1) 5 Normal Abduction 5 Normal Adduction 5 Normal External Rotation 5 Normal Internal Rotation 5 Normal PT-OP-Q Treatments Start: 01/09/20 12:45 Freq: Status: Active Protocol: Document 02/12/20 08:15 LRN (Rec: 02/12/20 09:27 LRN [id number]) Cardio Equipment Recumbent Elliptical (Biodex) Duration (Minutes) 5 Resistance 5 Seat Position 0 Gym Equipment Therapeutic Ball Squatting Exercise Details Squat w/ball on wall & small of back Ball Size/Color Blue Small Body Position Standing Reps/Duration 8' Comments Training given for proper squat and practiced until able to do without back pain (pain then was in lower leg ( anterior tib) and R medial knee. Training a second time after Glut/Quad strengthening. Sitting Posterior tilt of Pelvis Exercise Details Posterior Tilt of pelvis to stretch multificus/Lumbar parspinals Body Position Sitting Reps/Duration 3' Comments Pt had reduced LBP with posterior pelvic tilt. Therapeutic Exercises Supine Exercises Iliopsoas stretch Supine Exercise Name Iliacus stretch: KTC positioning Side bilateral Reps/Minutes 60 each Standing Exercises Wall squats Standing Exercise Name Wall squat for Quad/Glut strengthening Equipment Used Wall Reps/Minutes 3' Comments Back pain Sit backs with // bars Standing Exercise Name Sit backs for Quad/Glut strengthening Equipment Used // Bars Comments LBP, pt felt no Glut strengthening Therapeutic Activity Therapeutic Activity Lifting box from Floor Name Lifting box from Floor w/4# wgt Reps/Minutes 5x Comments Pt needed modifying of lifting techniques until proper lift form with least discomfort. Modified back position, feet position & stance width. Self-Care/Home Management Treatment Education Patient Education Body Mechanics Other Education Pt education in proper Body mechanics for lifting boxes off floor, and anatomy associated with proper posturing and with lifting. Educated pt in packing of boxes for minimal stress on back, including kneeling, squatting, with and without support of UE's and discussed precautions of bending at waist and trunk rotation. Answered questions from patient. PT-OP-R Modalities Start: 01/09/20 12:45 Freq: Status: Active Protocol: Document 02/05/20 09:48 LRN (Rec: 02/05/20 15:59 LRN [id number]) Hot Pack/Cold Pack Treatment Hot Pack Location Low back Treatment Duration (minutes) 10 Patient Tolerance Good Comments MH used during hip and Iliopsoas stretch. PT-OP-T Assessment and Plan Start: 01/09/20 12:45 Freq: Status: Active Protocol: Document 02/12/20 08:15 LRN (Rec: 02/12/20 09:27 LRN [id number]) Physical Therapy Assessment Goals Five Impairment Pt limited in ability to bend over (pain 8/10) or lift weights. Oil Exploration Engineer Goal (LTG) Decrease pain in low back and lower 1/2 of the body, with pt will be able to bend over with less pain and lift light weights of 10#. LTG Duration 04/08/20 Four Impairment Extended posture of back and protective posturing. Short Term Goal (STG) Pt will be be able to correct for his excessive lumbar lordosis when cued. STG Duration 01/23/20 Oil Exploration Engineer Goal (LTG) Pt will demonstrate improved awareness of his protective posturing and excessive lumbar lordosis, and will be able to self correct when cued or will independently self correct. LTG Duration 04/08/20 (01/18/20: Less protective posturing noted) Three Impairment Decreased activity tolerance and endurance. Short Term Goal (STG) Pt will be able to tolerate walking for >30' on level without limiting back/LE pain. STG Duration 02/27/20 Oil Exploration Engineer Goal (LTG) Pt retirement goal is to be able to run at least a 1/4 mile distance, but appropriate goal would be for pt to be able to demonstrate ability to run for no greater than 10' prior to onset of limiting LBP . LTG Duration 04/08/20 Two Impairment Pain limiting funct'l static sitting (constant shifting) and standing (<3') Short Term Goal (STG) Improve posture & decrease LBP in standing with pt able to stand > 3'. STG Duration 02/27/20 Oil Exploration Engineer Goal (LTG) Educate pt in proper sitting posture to minimize LBP, with pt able to sit for 25-30' prior to pt needing to shift to reduce back pain. LTG Duration 04/08/20 (01/18/20: Goal partially met, educated pt in proper sit posture) One Impairment Pt lacks appropriate self care HEP Halfway Goal (LTG) Pt will be independent with a self care HEP to manage his pain and mobility restrictions . LTG Duration 04/08/20 (02/05/20: Progressing) Progress Towards Goals Progress Comments Lifting practice pt started with LBP but was able to perform without back pain ( although more pain in lateral thigh and lower leg anteriorly with improved mechanics). Assessment Summary Assessment Improved body mechanics for lifting. Physical Therapy Plan Frequency and Duration Frequency of Treatment 2x/Week Plan of Care Start Date 01/09/20 Plan of Care End Date 04/08/20 Next Visit Focus/Plan Next Note Type Progress Note Next Visit Plan Pt moving to [place] probable 02/23-10/12; therefore continue as pt is able to get into my full schedule, for placement on HEP. Assess progress to goals ( trunk mobility and associated pain, self posture corrections and awareness, sit & stand tolerance/posture sitting). Body mechanics training for lifting and tolerance to lift 10#. Issue & review HEP: active HS stretch, & TA control w/hip AD strengthening. Review self MWM to L3 for R knee pain, Review HEP: previously issued ex's (cat/camel, rockback, fig 4 stretch). Review TA tightening for functional and transfer activities to limit excessive lordosis. Try Manual lumbar traction if increased lumbar pain.
--- NOTE | 2020-02-12 19:07 | PT.OTN ---
Current Diagnoses Low back pain (02/12/20) Pain in leg, unspecified (02/12/20) Abnormal posture (02/12/20) Physical Therapy Treatment Note PT-OP-A Visit Information Start: 01/09/20 12:45 Freq: Status: Active Protocol: Document 02/12/20 08:15 LRN (Rec: 02/12/20 09:27 LRN [id number]) Out-Patient Physical Therapy Visit Information Visit Information Visit Type Treatment Note Visit Start Time 08:15 Visit Stop Time 09:05 Total Visit Minutes 50 Visit Number 9 Evaluation Information Evaluation Date 01/09/20 Precautions Precautions Depression Prior Hx of Testicular torsion surgery in 2016. Bruises easily PT-OP-B Current Condition Start: 01/09/20 12:45 Freq: Status: Active Protocol: Document 01/09/20 14:23 LRN (Rec: 01/09/20 15:13 LRN [id number]) Current Condition History of Current Condition Onset Date 2016 Current Complaints LBP, intermittent LE pain and constant tingling/burning in entire foot. History of Current Condition LBP after surgery for testicular torsion in 2016. Pain started in both feet and radiates in spots up the legs (front of the knees) into the entire lower back. PT referral to see if the problem is in the lower back. Recently went to ER, last week , for back spasms. Was given medication (anti-inflammatory & Naproxin) that didn't help a lot. He reports sometimes burning pain along the medial inginual ligament bilaterally. Prior Treatments and Tests See above for medications taking. Future Testing and Treatments Planned None planned. Treatment Goals Patient/Caregiver Goals Pt goal is to relieve pain in low back and lower 1/2 of the body, 2) be able to lift weights 3) run for long distance (>1/4 mile), 4) tolerate standing still (>3') 5) Sit w/o having to shift around or lean, 6) Walk >30', 7) Bend with less pain. Prior Functional Status Baseline Function- ADL's Independent Baseline Function- Mobility Independent Current Functional Impairments (Reported) Functional Limitations- ADL's Limited in Lifting, bending, standing & sitting tolerance. Functional Limitations- Mobility/Gait Not able to walking > 30' or run > 1/4 mile Personal Factors Other Personal Factors That May Effect Depression that pt is seeking Therapy/Recovery medical help for. Pt demonstrates high sympathetic nervous system and protective posturing. PT-OP-C Subjective Start: 01/09/20 12:45 Freq: Status: Active Protocol: Document 02/12/20 08:15 LRN (Rec: 02/12/20 09:27 LRN [id number]) OP-PT Subjective Patient Comments Patient Comments States he doesn't have an infection in the surgical site , and will have to see a neurolgist, Dr. Angel. Back pain is 5/10, less knee pain today 3/10, groin pain is 6/10 . Been doing stretches. After last session no change. Has been lifting boxes because of packing. When slouching (posterior pelvic tilt) on T-Ball his pain is less. Patient Questionnaires Oswestry Low Back Index Oswestry Score 44 Oswestry Impairment 40 to 59% Impaired (Score 40- 59) PT-OP-H Neuro Start: 01/09/20 12:45 Freq: Status: Active Protocol: Document 01/09/20 14:23 LRN (Rec: 01/09/20 19:41 LRN [id number]) Sensation Evaluation Gross Sensation Sensation Description Hyperesthesia,Pins & [place] Dermatome Impairments L5,S1 Deep Tendon Reflex & Clonus Assessment Deep Tendon Reflex Bilateral Achilles Deep Tendon Reflex 3+ Normal But Brisk Left Patellar Deep Tendon Reflex 3+ Normal But Brisk PT-OP-J Posture/Palpation/Skin Start: 01/09/20 12:45 Freq: Status: Active Protocol: Document 01/09/20 14:23 LRN (Rec: 01/09/20 19:41 LRN [id number]) Posture Evaluation Position Standing Head/C-Spine Posture Neutral Position T-Spine Posture Neutral L-Spine Posture Rotation Right,Increased Lordosis Shoulder Posture Neutral Pelvis Posture Anteriorly Tilted Weight Distribution Balanced Comments Posture Comments Patient demonstrated protective posturing of the UE 's in standing, supine and prone with Palpation Assessment Location Lumbar region Palpation Location Posterior lumbar region Palpation Findings Soft Tissue Tightness,Muscle Guarding,Tenderness Palpation Details Spinous process of L1-L3, L5. Tranverse processes of L1 through L5 Lumbar paraspinals as indicated above PT-OP-K Range of Motion Start: 01/09/20 12:45 Freq: Status: Active Protocol: Document 01/22/20 09:07 LRN (Rec: 01/22/20 09:49 LRN [id number]) Hip Goniometric Range of Motion Hip Right Active Flexion w/Knee Flexed 70 Straight Leg Raise 30 Abduction 22 Left Active Flexion w/Knee Flexed 80 Straight Leg Raise 75 Abduction 27 Hip ROM Limitations Comments L add 27 DEG'S R add 32 DEG'S PT-OP-L Special Tests Start: 01/09/20 12:45 Freq: Status: Active Protocol: Document 01/09/20 14:23 LRN (Rec: 01/09/20 19:41 LRN [id number]) Special Tests Lumbar Spine Special Tests Vertical Spine Loading Test Results + Comments Pain reproduced in L low back Manual Traction Test Results - Comments No change with pain Kenan Test Results + bilaterally Comments Indicates very tight hip flexors Straight Leg Raise Test Results + bilaterally Comments L LBP with testing bilaterally indicating possible large disc involvement Slump Test Results + Comments Increased back pain PT-OP-M Strength Start: 01/09/20 12:45 Freq: Status: Active Protocol: Document 01/18/20 11:21 LRN (Rec: 01/18/20 12:21 LRN [id number]) Hip Strength Hip Manual Muscle Testing Right Flexion (L2) 4+ Good+ Extension (S1) 4 Good Abduction 4+ Good+ Adduction 4 Good External Rotation 5 Normal Internal Rotation 5 Normal Comments R hip ext: lacks ROM R hip AD: Causes L lateral trunk pain. Left Flexion (L2) 5 Normal Extension (S1) 5 Normal Abduction 5 Normal Adduction 5 Normal External Rotation 5 Normal Internal Rotation 5 Normal PT-OP-Q Treatments Start: 01/09/20 12:45 Freq: Status: Active Protocol: Document 02/12/20 08:15 LRN (Rec: 02/12/20 09:27 LRN [id number]) Cardio Equipment Recumbent Elliptical (Biodex) Duration (Minutes) 5 Resistance 5 Seat Position 0 Gym Equipment Therapeutic Ball Squatting Exercise Details Squat w/ball on wall & small of back Ball Size/Color Blue Small Body Position Standing Reps/Duration 8' Comments Training given for proper squat and practiced until able to do without back pain (pain then was in lower leg ( anterior tib) and R medial knee. Training a second time after Glut/Quad strengthening. Sitting Posterior tilt of Pelvis Exercise Details Posterior Tilt of pelvis to stretch multificus/Lumbar parspinals Body Position Sitting Reps/Duration 3' Comments Pt had reduced LBP with posterior pelvic tilt. Therapeutic Exercises Supine Exercises Iliopsoas stretch Supine Exercise Name Iliacus stretch: KTC positioning Side bilateral Reps/Minutes 60 each Standing Exercises Wall squats Standing Exercise Name Wall squat for Quad/Glut strengthening Equipment Used Wall Reps/Minutes 3' Comments Back pain Sit backs with // bars Standing Exercise Name Sit backs for Quad/Glut strengthening Equipment Used // Bars Comments LBP, pt felt no Glut strengthening Therapeutic Activity Therapeutic Activity Lifting box from Floor Name Lifting box from Floor w/4# wgt Reps/Minutes 5x Comments Pt needed modifying of lifting techniques until proper lift form with least discomfort. Modified back position, feet position & stance width. Self-Care/Home Management Treatment Education Patient Education Body Mechanics Other Education Pt education in proper Body mechanics for lifting boxes off floor, and anatomy associated with proper posturing and with lifting. Educated pt in packing of boxes for minimal stress on back, including kneeling, squatting, with and without support of UE's and discussed precautions of bending at waist and trunk rotation. Answered questions from patient. PT-OP-R Modalities Start: 01/09/20 12:45 Freq: Status: Active Protocol: Document 02/05/20 09:48 LRN (Rec: 02/05/20 15:59 LRN [id number]) Hot Pack/Cold Pack Treatment Hot Pack Location Low back Treatment Duration (minutes) 10 Patient Tolerance Good Comments MH used during hip and Iliopsoas stretch. PT-OP-T Assessment and Plan Start: 01/09/20 12:45 Freq: Status: Active Protocol: Document 02/12/20 08:15 LRN (Rec: 02/12/20 09:27 LRN [id number]) Physical Therapy Assessment Goals Five Impairment Pt limited in ability to bend over (pain 8/10) or lift weights. Education Program Manager Goal (LTG) Decrease pain in low back and lower 1/2 of the body, with pt will be able to bend over with less pain and lift light weights of 10#. LTG Duration 04/08/20 Four Impairment Extended posture of back and protective posturing. Short Term Goal (STG) Pt will be be able to correct for his excessive lumbar lordosis when cued. STG Duration 01/23/20 Education Program Manager Goal (LTG) Pt will demonstrate improved awareness of his protective posturing and excessive lumbar lordosis, and will be able to self correct when cued or will independently self correct. LTG Duration 04/08/20 (01/18/20: Less protective posturing noted) Three Impairment Decreased activity tolerance and endurance. Short Term Goal (STG) Pt will be able to tolerate walking for >30' on level without limiting back/LE pain. STG Duration 02/27/20 Correction Goal (LTG) Pt care home goal is to be able to run at least a 1/4 mile distance, but appropriate goal would be for pt to be able to demonstrate ability to run for no greater than 10' prior to onset of limiting LBP . LTG Duration 04/08/20 Two Impairment Pain limiting funct'l static sitting (constant shifting) and standing (<3') Short Term Goal (STG) Improve posture & decrease LBP in standing with pt able to stand > 3'. STG Duration 02/27/20 Correction Goal (LTG) Educate pt in proper sitting posture to minimize LBP, with pt able to sit for 25-30' prior to pt needing to shift to reduce back pain. LTG Duration 04/08/20 (01/18/20: Goal partially met, educated pt in proper sit posture) One Impairment Pt lacks appropriate self care HEP Education Program Manager Goal (LTG) Pt will be independent with a self care HEP to manage his pain and mobility restrictions . LTG Duration 04/08/20 (02/05/20: Progressing) Progress Towards Goals Progress Comments Lifting practice pt started with LBP but was able to perform without back pain ( although more pain in lateral thigh and lower leg anteriorly with improved mechanics). Assessment Summary Assessment Improved body mechanics for lifting. Less back pain with squatting after training of proper squat mechanics. Sitting pain is less with posterior pelvic tilt on T- Ball. Modified Oswestry of 44 /50 (was 42/50) indicates decreased function. Physical Therapy Plan Frequency and Duration Frequency of Treatment 2x/Week Plan of Care Start Date 01/09/20 Plan of Care End Date 04/08/20 Next Visit Focus/Plan Next Note Type Progress Note Next Visit Plan Pt moving to [place] probable 02/23-10/12; therefore continue as pt is able to get into my full schedule, for placement on HEP. Assess progress to goals ( trunk mobility and associated pain, self posture corrections and awareness, sit & stand tolerance/posture sitting). Body mechanics training for lifting and tolerance to lift 10#. Issue & review HEP: active HS stretch, & TA control w/hip AD strengthening. Review self MWM to L3 for R knee pain, Review HEP: previously issued ex's (cat/camel, rockback, fig 4 stretch). Review TA tightening for functional and transfer activities to limit excessive lordosis. Try Manual lumbar traction if increased lumbar pain.
--- NOTE | 2020-03-05 09:27 | PT.OPDS ---
Current Diagnoses Low back pain (02/12/20) Pain in leg, unspecified (02/12/20) Abnormal posture (02/12/20) Visit Care Team Role Provider Type Kadeemilynamrata Donovan Family Provider Non-Staff Specialty: Family Practice Address: [address] [place], [phone] Fax: Email: Liliya Angel MD Attending Provider Non-Staff Referring Provider Specialty: Neurology Address: [address] [place] [address], [id number] Email: Visit Number Visit Number 9 Discharge Summary PT-OP-B Current Condition Start: 01/09/20 12:45 Freq: Status: Active Protocol: Document 01/09/20 14:23 LRN (Rec: 01/09/20 15:13 LRN [id number]) Current Condition History of Current Condition Onset Date 2015 Current Complaints LBP, intermittent LE pain and constant tingling/burning in entire foot. History of Current Condition LBP after surgery for testicular torsion in 2016. Pain started in both feet and radiates in spots up the legs (front of the knees) into the entire lower back. PT referral to see if the problem is in the lower back. Recently went to ER, last week , for back spasms. Was given medication (anti-inflammatory & Naproxin) that didn't help a lot. He reports sometimes burning pain along the medial inginual ligament bilaterally. Prior Treatments and Tests See above for medications taking. Future Testing and Treatments Planned None planned. Treatment Goals Patient/Caregiver Goals Pt goal is to relieve pain in low back and lower 1/2 of the body, 2) be able to lift weights 3) run for long distance (>1/4 mile), 4) tolerate standing still (>3') 5) Sit w/o having to shift around or lean, 6) Walk >30', 7) Bend with less pain. Prior Functional Status Baseline Function- ADL's Independent Baseline Function- Mobility Independent Current Functional Impairments (Reported) Functional Limitations- ADL's Limited in Lifting, bending, standing & sitting tolerance. Functional Limitations- Mobility/Gait Not able to walking > 30' or run > 1/4 mile Personal Factors Other Personal Factors That May Effect Depression that pt is seeking Therapy/Recovery medical help for. Pt demonstrates high sympathetic nervous system and protective posturing. PT-OP-C Subjective Start: 01/09/20 12:45 Freq: Status: Active Protocol: Document 02/12/20 08:15 LRN (Rec: 02/12/20 09:27 LRN [id number]) OP-PT Subjective Patient Comments Patient Comments States he doesn't have an infection in the surgical site , and will have to see a neurolgist, Dr. Angel. Back pain is 5/10, less knee pain today 3/10, groin pain is 6/10 . Been doing stretches. After last session no change. Has been lifting boxes because of packing. When slouching (posterior pelvic tilt) on T-Ball his pain is less. Patient Questionnaires Oswestry Low Back Index Oswestry Score 44 Oswestry Impairment 40 to 59% Impaired (Score 40- 59) PT-OP-H Neuro Start: 01/09/20 12:45 Freq: Status: Active Protocol: Document 01/09/20 14:23 LRN (Rec: 01/09/20 19:41 LRN [id number]) Sensation Evaluation Gross Sensation Sensation Description Hyperesthesia,Pins & [place] Dermatome Impairments L5,S1 Deep Tendon Reflex & Clonus Assessment Deep Tendon Reflex Bilateral Achilles Deep Tendon Reflex 3+ Normal But Brisk Left Patellar Deep Tendon Reflex 3+ Normal But Brisk PT-OP-J Posture/Palpation/Skin Start: 01/09/20 12:45 Freq: Status: Active Protocol: Document 01/09/20 14:23 LRN (Rec: 01/09/20 19:41 LRN [id number]) Posture Evaluation Position Standing Head/C-Spine Posture Neutral Position T-Spine Posture Neutral L-Spine Posture Rotation Right,Increased Lordosis Shoulder Posture Neutral Pelvis Posture Anteriorly Tilted Weight Distribution Balanced Comments Posture Comments Patient demonstrated protective posturing of the UE 's in standing, supine and prone with Palpation Assessment Location Lumbar region Palpation Location Posterior lumbar region Palpation Findings Soft Tissue Tightness,Muscle Guarding,Tenderness Palpation Details Spinous process of L1-L3, L5. Tranverse processes of L1 through L5 Lumbar paraspinals as indicated above PT-OP-K Range of Motion Start: 01/09/20 12:45 Freq: Status: Active Protocol: Document 01/22/20 09:07 LRN (Rec: 01/22/20 09:49 LRN [id number]) Hip Goniometric Range of Motion Hip Right Active Flexion w/Knee Flexed 70 Straight Leg Raise 30 Abduction 22 Left Active Flexion w/Knee Flexed 80 Straight Leg Raise 75 Abduction 27 Hip ROM Limitations Comments L add 27 DEG'S R add 32 DEG'S PT-OP-L Special Tests Start: 01/09/20 12:45 Freq: Status: Active Protocol: Document 01/09/20 14:23 LRN (Rec: 01/09/20 19:41 LRN [id number]) Special Tests Lumbar Spine Special Tests Vertical Spine Loading Test Results + Comments Pain reproduced in L low back Manual Traction Test Results - Comments No change with pain Kenan Test Results + bilaterally Comments Indicates very tight hip flexors Straight Leg Raise Test Results + bilaterally Comments L LBP with testing bilaterally indicating possible large disc involvement Slump Test Results + Comments Increased back pain PT-OP-M Strength Start: 01/09/20 12:45 Freq: Status: Active Protocol: Document 01/18/20 11:21 LRN (Rec: 01/18/20 12:21 LRN [id number]) Hip Strength Hip Manual Muscle Testing Right Flexion (L2) 4+ Good+ Extension (S1) 4 Good Abduction 4+ Good+ Adduction 4 Good External Rotation 5 Normal Internal Rotation 5 Normal Comments R hip ext: lacks ROM R hip AD: Causes L lateral trunk pain. Left Flexion (L2) 5 Normal Extension (S1) 5 Normal Abduction 5 Normal Adduction 5 Normal External Rotation 5 Normal Internal Rotation 5 Normal PT-OP-T Assessment and Plan Start: 01/09/20 12:45 Freq: Status: Active Protocol: Document 03/05/20 09:26 MB (Rec: 03/05/20 09:26 MB [id number]) Physical Therapy Plan Discharge Physical Therapy Discharge Reasons No Longer Attending PT Discharge Comments Per front office, pt moved on 02/26/2020. Will d/c PT.
== END 2020-03-05 13:02 ==
LOC: PHYS 08:15
PROVIDERS: Family Provider General Practice; Referring Provider Psychiatry & Neurology Neurology; Visit Provider Psychiatry & Neurology Neurology
DX: M54.5 Low back pain (principal); M79.606 Pain in leg, unspecified; R29.3 Abnormal posture
CPT/HCPCS: 97014; 97110; 97140; 97162; 97535; G0283